=== PATIENT | female | born 2005 | race Caucasian/White ===

== ENCOUNTER 2023-01-04 15:23 | Inpatient (IN) | payer BC, SELFPAY ==
[2023-01-04 15:26] VITALS: BP 110/82; PULSE 82; O2SAT 98
--- NOTE | 2023-01-04 15:43 | MHC.CARE ---
Ky from 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 Ky reports suspected either psychosis or severe OCD, seems to have possible auditory hallucinations. Pt was prescribed a low dose of Seroquel but is anti medication?and unlikely she took any. Is young for her age and, terrified, lots of reassurance is helpful Patient is scheduled to go home to [place] on January 13 would be unable to travel in current condition. Pt will be evaluated possibly tonight/tomorrow.
[2023-01-04 15:48] VITALS: BP 113/77; PULSE 90; RESP 16; TEMP 36.4; O2SAT 100; BMI 26.4
[2023-01-04 15:52] VITALS: RESP 16; O2SAT 100
--- NOTE | 2023-01-04 15:54 | PC.NURSE ---
Pt is calm, cooperative. Reports instrusive thoughts with SI. States history of same but unable to control thoughts however this time pt is able to control if I don't think Pt denies plan at this time. Denies increased stressors, anxiety, AH or VH. Denies drug use or ETOH use. When speaking with pt, pt noted to talk under breath, refused to elaborate when asked what pt was saying. Good eye contact. Pt observer at bedside
--- NOTE | 2023-01-04 16:00 | ED_ITS ---
HPI - Psych General Chief Complaint: Psychiatric Symptoms Stated Complaint: SI Time Seen by Provider: 01/04/23 15:47 Source: patient Mode of arrival: ambulatory Limitations: no limitations History of Present Illness HPI Narrative: 17-year-old female presents emergency department with depression and suicidal thoughts. Patient is coming from a local college. Patient is not on any medications he has been overwhelmed as fevers chills cough nausea vomiting or diarrhea. MD complaint: suicidal ideation and feels depressed Related Data Allergies Allergy/AdvReac Type Severity Reaction Status Date / Time No Known Allergies Allergy Verified 01/04/23 16:03 Review of Systems Review of Systems: Review of systems: General: Patient denies any fever chills recent illness or falls Musculoskeletal: Denies back pain or body aches or other injuries HEENT: denies headache, runny nose, ear pain Respiratory: denies shortness of breath, cough Cardiovascular: no chest pain or palpitations : denies dysuria, frequency Abdomen: no nausea vomiting denies abdominal pain Extremities: no swelling, no pain Skin: no diaphoresis Yes all other systems are reviewed and are negative PMFSH Social History Social History Smoked in Last 30 Days: No Use of substances other than those prescribed or required for medical reasons: No Advance Directives: No Advance Directives Information Provided: No Patient : No Physical Exam Vital Signs: Vital Signs: Last Vital Signs Temp 98.7 F 01/04/23 20:48 Pulse 77 01/04/23 20:48 Resp 17 01/04/23 20:48 BP 128/85 01/04/23 20:48 Pulse Ox 98 01/04/23 20:48 O2 Del Method Room Air 01/04/23 20:48 BMI result Body Mass Index 26.4 General: Well-appearing well-nourished in no signs of distress HEENT: Normocephalic atraumatic Neck: No signs of JVD, no masses no tenderness or lymphadenopathy Cardiovascular: Regular rate and rhythm Respiratory: Clear to auscultation bilaterally Abdomen: Soft nontender no masses rectal exam performed guiac negative water quality assistant confirmed. Extremities: Normal pedal pulses no signs of edema Skin: Dry warm no rashes Back: No tenderness full ROM Medical Decision Making Medical Decision Making MDM Narrative: Patient with SI looks stable seems more vital still waiting for allergy to that in patient states she is not on any medications. Labs are all normal pending evalution. I will sign out to Dr. Casiano Differential Diagnosis Differential Diagnoses: The differential diagnosis associated with the presentation includes Admission/Observation Consideration of admission/observation: Escalation of care including admission/observation considered Consult Healthcare Provider Management of the patient was discussed with: Behavioral Health Provider Lab Data [facility] Lab Attestation statement: I reviewed the patient's lab results. 01/04/23 17:01 01/04/23 17:01 Labs: Lab Results 01/04/23 01/04/23 01/04/23 Range/Units 17: 17:01 20:47 WBC 10.0 (4.8-10.8) X10*3/uL RBC 4.48 (4.20-5.50) X10*6/uL Hgb 13.6 (12.0-16.0) g/dl Hct 42.0 (37.0-47.0) % MCV 93.8 (80.0-98.0) fL MCH 30.4 (27.0-33.0) pg MCHC 32.4 (31.0-35.0) g/dl RDW 13.5 (11.0-16.0) % Plt Count 309 (160-400) X10*3/uL MPV 10.0 (9.4-12.3) fL Immature Gran % (Auto) 0.3 (0.0-0.4) % Neut % (Auto) 67.3 (45-73) % Lymph % (Auto) 24.2 (20-40) % [place] % (Auto) 6.7 (2-11) % Eos % (Auto) 0.9 (0-4) % Baso % (Auto) 0.6 (0-2) % Lymph # (Auto) 2.4 (1.2-4.9) X10*3/uL [place] # (Auto) 0.7 (0.1-1.2) X10*3/uL Eos # (Auto) 0.1 (0.0-0.4) X10*3/uL Baso # (Auto) 0.1 (0.0-0.2) X10*3/uL Abs Immat Gran (auto) 0.03 (0.00-0.03) X10*3/uL Absolute Neuts (auto) 6.7 (2.0-8.3) x10*3/uL Absolute Nucleated RBC 0.000 (0.0-0.012) X10*3/uL Nucleated RBC % (auto) 0.0 (0.0-0.2) /100WBC Sodium 140 (135-145) mmol/L Potassium 3.7 (3.3-5.1) mmol/L Chloride 106 (96-108) mmol/L Carbon Dioxide 25 (22-29) mmol/L Anion Gap 13 (12-20) BUN 17 H (9-16) mg/dL Creatinine 0.75 (0.5-1.4) mg/dL Estim Creat Clear Calc 98.6 Estimated GFR > 60 Random Glucose 121 H (60-115) mg/dL Calcium 9.4 (8.4-10.2) mg/dL Total Bilirubin 0.3 (0.0-1.0) mg/dL AST 20 (5-31) U/L ALT 21 (0-31) U/L Alkaline Phosphatase 44 (39-117) U/L Total Protein 7.2 (6.5-8.0) g/dL Albumin 4.4 (3.5-5.0) g/dL Urine Color Urine Appearance Urine pH (5.0-9.0) Ur Specific [place] (1.005-1.025) Urine Protein (Neg-Trace) mg/dL Urine Glucose (UA) (Negative) mg/dL Urine Ketones (Negative) mg/dL Urine Blood (Negative) Urine Nitrite (Negative) Ur Leukocyte Esterase (Negative) Urine Test NEGATIVE (NEGATIVE) Salicylates < 5.0 L (15-30) mg/dL Urine Opiates Screen (Not Detect) Urine Fentanyl Screen (Not Detect) Acetaminophen < 17 (<30) mcg/mL Ur Barbiturates Screen (Not Detect) Ur Phencyclidine Scrn (Not Detect) Ur Amphetamines Screen (Not Detect) U Benzodiazepines Scrn (Not Detect) Urine Cocaine Screen (Not Detect) U Marijuana (THC) Screen (Not Detect) Ethyl Alcohol < 10 mg/dL COVID-19 ([facility]) (Negative) COVID-19 Clin Com 01/04/23 01/04/23 01/04/23 Range/Units 20:47 20:47 22:23 WBC (4.8-10.8) X10*3/uL RBC (4.20-5.50) X10*6/uL Hgb (12.0-16.0) g/dl Hct (37.0-47.0) % MCV (80.0-98.0) fL MCH (27.0-33.0) pg MCHC (31.0-35.0) g/dl RDW (11.0-16.0) % Plt Count (160-400) X10*3/uL MPV (9.4-12.3) fL Immature Gran % (Auto) (0.0-0.4) % Neut % (Auto) (45-73) % Lymph % (Auto) (20-40) % [place] % (Auto) (2-11) % Eos % (Auto) (0-4) % Baso % (Auto) (0-2) % Lymph # (Auto) (1.2-4.9) X10*3/uL [place] # (Auto) (0.1-1.2) X10*3/uL Eos # (Auto) (0.0-0.4) X10*3/uL Baso # (Auto) (0.0-0.2) X10*3/uL Abs Immat Gran (auto) (0.00-0.03) X10*3/uL Absolute Neuts (auto) (2.0-8.3) x10*3/uL Absolute Nucleated RBC (0.0-0.012) X10*3/uL Nucleated RBC % (auto) (0.0-0.2) /100WBC Sodium (135-145) mmol/L Potassium (3.3-5.1) mmol/L Chloride (96-108) mmol/L Carbon Dioxide (22-29) mmol/L Anion Gap (12-20) BUN (9-16) mg/dL Creatinine (0.5-1.4) mg/dL Estim Creat Clear Calc Estimated GFR Random Glucose (60-115) mg/dL Calcium (8.4-10.2) mg/dL Total Bilirubin (0.0-1.0) mg/dL AST (5-31) U/L ALT (0-31) U/L Alkaline Phosphatase (39-117) U/L Total Protein (6.5-8.0) g/dL Albumin (3.5-5.0) g/dL Urine Color Yellow Urine Appearance Clear Urine pH 6.5 (5.0-9.0) Ur Specific [place] 1.025 (1.005-1.025) Urine Protein Negative (Neg-Trace) mg/dL Urine Glucose (UA) Negative (Negative) mg/dL Urine Ketones Negative (Negative) mg/dL Urine Blood Negative (Negative) Urine Nitrite Negative (Negative) Ur Leukocyte Esterase Negative (Negative) Urine Test (NEGATIVE) Salicylates (15-30) mg/dL Urine Opiates Screen Not Detected (Not Detect) Urine Fentanyl Screen Not Detected (Not Detect) Acetaminophen (<30) mcg/mL Ur Barbiturates Screen Not Detected (Not Detect) Ur Phencyclidine Scrn Not Detected (Not Detect) Ur Amphetamines Screen Not Detected (Not Detect) U Benzodiazepines Scrn Not Detected (Not Detect) Urine Cocaine Screen Not Detected (Not Detect) U Marijuana (THC) Screen Not Detected (Not Detect) Ethyl Alcohol mg/dL COVID-19 ([facility]) Negative (Negative) COVID-19 Clin Com See Note Discharge Plan Discharge Clinical Impression: Chronic schizophrenia, Suicidal ideation Patient Disposition: Still a Patient Instructions: Suicide Prevention (ED), Help Prevent Suicide (ED) Additional Instructions: Please call to follow up. Interventions: Mower-Suicide Risk Severity Scale Last Done: 01/04/23 15:52
[2023-01-04 17:07] LABS: MANUAL DIFF FLAG NO
[2023-01-04 17:21] LABS: Basophils Absolute Auto 0.1 X10*3/uL (0.0-0.2); Basophils Percent Auto 0.6 % (0-2); Eosinophils Absolute Auto 0.1 X10*3/uL (0.0-0.4); Eosinophils Percent Auto 0.9 % (0-4); Hemoglobin 13.6 g/dl (12.0-16.0); Imm Gran Abs Auto 0.03 X10*3/uL (0.00-0.03); Imm Gran Pct Auto 0.3 % (0.0-0.4); Lymphocytes Absolute Auto 2.4 X10*3/uL (1.2-4.9); Lymphocytes Percent Auto 24.2 % (20-40); Mean Corpuscular HGB Conc 32.4 g/dl (31.0-35.0); Mean Corpuscular Hemoglobin 30.4 pg (27.0-33.0); Mean Corpuscular Volume 93.8 fL (80.0-98.0); Monocytes Absolute Auto 0.7 X10*3/uL (0.1-1.2); Monocytes Percent Auto 6.7 % (2-11); Neutrophils Absolute Auto 6.7 x10*3/uL (2.0-8.3); Neutrophils Percent Auto 67.3 % (45-73); Platelet Count 309 X10*3/uL (160-400); Red Blood Count 4.48 X10*6/uL (4.20-5.50); Red Cell Distribution Width 13.5 % (11.0-16.0)
[2023-01-04 17:25] LABS: Acetaminophen LAB < 17 mcg/mL (<30); Alanine Aminotransferase 21 U/L (0-31); Albumin Level 4.4 g/dL (3.5-5.0); Alkaline Phosphatase 44 U/L (39-117); Anion Gap 13 (12-20); Aspartate Amino Transferase 20 U/L (5-31); Bilirubin Total 0.3 mg/dL (0.0-1.0); Blood Urea Nitrogen 17 mg/dL (9-16); Calcium 9.4 mg/dL (8.4-10.2); Carbon Dioxide 25 mmol/L (22-29); Chloride 106 mmol/L (96-108); Creatinine Clr Calc Pharmacy 98.6; Estimated Glomerular Filt Rate > 60; Ethanol < 10 mg/dL; Glucose Random 121 mg/dL (60-115); Potassium 3.7 mmol/L (3.3-5.1); Salicylate < 5.0 mg/dL (15-30); Sodium 140 mmol/L (135-145); Total Protein 7.2 g/dL (6.5-8.0)
[2023-01-04 20:48] VITALS: BP 128/85; PULSE 77; RESP 17; TEMP 37.1; O2SAT 98
[2023-01-04 21:05] LABS: Amphetamine Screen Urine Not Detected (Not Detect); Barbiturates, Urine Not Detected (Not Detect); Benzodiazepines Screen Urine Not Detected (Not Detect); Cannabinoid Screen Urine Not Detected (Not Detect); Cocaine Screen Urine Not Detected (Not Detect); Fentanyl, urine Not Detected (Not Detect); Opiate Screen Urine Not Detected (Not Detect); Phencyclidine Screen Urine Not Detected (Not Detect)
[2023-01-04 21:08] LABS: UPreg QC Valid YES; Urine Pregnancy NEGATIVE (NEGATIVE)
[2023-01-04 22:27] LABS: Appearance Urine Clear; Color Urine Yellow; Glucose Urine UA Negative (Negative); Leukocyte Esterase Urine Negative (Negative); Nitrite Urine Negative (Negative); PH 6.5 (5.0-9.0); Specific Gravity - Urine 1.025 (1.005-1.025); Urine Blood Negative (Negative); Urine Ketones Negative (Negative); Urine Protein Negative (Neg-Trace)
[2023-01-04 22:43] LABS: COVID-19 Test Negative (Negative); IDNOW Serial# 08D9AD1C
--- NOTE | 2023-01-05 02:43 | PC.NURSE ---
Patient slept through the night, no distress observed/reported, med rec completed/pending provider's approval, per care team patient was forthcoming and help seeking, disposition is section 12 inpatient bed search, VSS, behavior non concerning, will continue to monitor.
[2023-01-05 06:16] VITALS: BP 94/30; PULSE 77; RESP 18; TEMP 36.3; O2SAT 97
[2023-01-05 06:29] VITALS: BP 118/66; PULSE 70; RESP 18; TEMP 36.9; O2SAT 99
[2023-01-05 08:40] VITALS: BP 141/93; PULSE 96; RESP 16; TEMP 36.7; O2SAT 98
--- NOTE | 2023-01-05 09:30 | MHC.EDTECH ---
T/w helped pt call family from [place] on her personal phone with 1:1 observation of staff. Pt needed to use [facility] [facility] in order to contact them and could not use ED provided phone to do so. After the conversation was over, t/w locked pt's personal phone back into locker 10.
--- NOTE | 2023-01-05 16:09 | ECG_ITS ---
Test Reason : CLEARANCE Blood Pressure : / mmHG Vent. Rate : 092 BPM Atrial Rate : 092 BPM P-R Int : 124 ms QRS Dur : 076 ms QT Int : 342 ms P-R-T Axes : 067 090 056 degrees QTc Int : 422 ms Normal sinus rhythm with sinus arrhythmia Rightward axis Borderline ECG No previous ECGs available Referred By: Elizabeth Keating Electronically Signed By:Alexis Cabello
[2023-01-05 17:35] VITALS: BP 132/68; PULSE 86; RESP 16; TEMP 36.8; O2SAT 97
[2023-01-05 17:36] VITALS: BMI 26.2
--- NOTE | 2023-01-05 18:24 | PC.ADMIT ---
Samir Sahu was admitted to the unit from the ER at 1645 via WC escorted by staff. First IPLOC for safety, medication evaluation, diagnostic clarification, diagnosis unspecified schizophrenia. CV signed and a 3 day signed which is up for resolution on 01/10/23. Labs, EKG, Covid-19 test benign, no medical history. Lee Ann is ad-tanika, steady gait, independent with ADL', engaged in admission assessment, denies SI/HI with positive report of AH, observed self dialogue, she identifies the voice as her heart Buddha she denied CAH. She reports feeling safe on the unit although she expressed some apprehension on being on the unit because of peers, Is this place safe? People are different here. I think my roommate is refugio strange. Plan of Care initiated (POC), 15 minute unit safety observation.
[2023-01-06 08:32] VITALS: BP 123/65; PULSE 136; RESP 18; TEMP 36; O2SAT 95
[2023-01-06 08:43] LABS: Estimated Average Glucose 105 mg/dL; Hemoglobin A1c % 5.3 %
[2023-01-06] MEDS: LORazepam 1 MG TABLET PO (10:37)
[2023-01-06] MEDS: HaloperidoL 5 MG TABLET PO (10:37)
[2023-01-06 10:59] LABS: Cholesterol 248 mg/dL; HDL Cholesterol 70 mg/dL; LDL Cholesterol Calculated 156 mg/dl; Magnesium 2.2 mg/dL (1.6-2.6); Triglycerides 110 mg/dL
[2023-01-06 11:35] LABS: Folate 12.8 ng/mL (> or = 4.0); Free T4 (Free Thyroxine) 1.02 ng/dL (0.71-1.85); Thyroid Stimulating Hormone 2.07 uIU/mL (0.32-4.0); Vitamin B12 408 pg/mL (200-900)
--- NOTE | 2023-01-06 15:14 | P.HPPS_ITS ---
HPI Date of Service: 01/06/23 Chief Complaint: Schizophrenia Sources of Information: patient interviewed, chart reviewed and crisis/core team assessment reviewed HPI Subjective Notes: Conditional Voluntary Healthcare Proxy: No Guardianship: No Medical Problems Affecting Mental Status: No Narrative: 17 yo female, student of [employer], to ER via EMS with increasing anxiety, depression, SI, intrusive thoughts, perceptual alterations, insomnia. Hx of schizophrenia, opposed to psychiatric medications. Pt to return home to [place] on 01/17/23 she reports and hospitalization goal is for mood stabilization so she will travel safely to family. Pt reports her heart has gone from bright to dark, describes lots of hurt, feeling isolated, emotionally crushed with racing, ci rcular thoughts and mood. States this began over spring when most peers went home and she remained, spending time with some friends but becoming more depressed. Reports sx presence since age 12 with voices, intrusive thoughts, traumatic visions of assault, decapitation. Pt reports she attempts not to empower the symptom as she does not wish for them to return to her. Past Psychiatric History: IP: Denies OP: [facility] [employer] Trials: Denies-uses Ugand[place] medicine, traditional methods to re-organize her body and herbal remedies Medical Evaluation Reviewed: Yes [facility] Medical History (Updated 01/06/23 @ 20:45 by Elizabeth Keating APRN) Schizoaffective disorder, bipolar type Family History: grandmother with mental illness Social History: only child, supportive parents, reports a good upbringing, studied abroad age 10 and age 12 in [place]. Reports parents are not aware she is here. Mom is Buddist-tells pt to always keep your heart and be bright. States both support her financially and emotionally. Pt last at home 2021. Enjoys school, drawing, philosophy, music Substance History: Denies Trauma History: Denies Diagnostics Vital Signs (24Hr): Vital Signs - 24 hr 01/05/23 17:35 01/06/23 08:32 Temperature 98.2 F 96.8 F Pulse Rate 86 136 H Respiratory Rate 16 18 Blood Pressure 132/68 123/65 Pulse Oximetry 97 95 Oxygen Delivery Method Room Air Room Air BMI result Body Mass Index 26.2 Labs 01/04/23 17:01 01/04/23 17:01 Labs: Laboratory Results - last 48 hr 01/04/23 01/04/23 01/04/23 17:01 17:01 20:47 WBC 10.0 RBC 4.48 Hgb 13.6 Hct 42.0 MCV 93.8 MCH 30.4 MCHC 32.4 RDW 13.5 Plt Count 309 MPV 10.0 Immature Gran % (Auto) 0.3 Neut % (Auto) 67.3 Lymph % (Auto) 24.2 [place] % (Auto) 6.7 Eos % (Auto) 0.9 Baso % (Auto) 0.6 Lymph # (Auto) 2.4 [place] # (Auto) 0.7 Eos # (Auto) 0.1 Baso # (Auto) 0.1 Abs Immat Gran (auto) 0.03 Absolute Neuts (auto) 6.7 Absolute Nucleated RBC 0.000 Nucleated RBC % (auto) 0.0 Sodium 140 Potassium 3.7 Chloride 106 Carbon Dioxide 25 Anion Gap 13 BUN 17 H Creatinine 0.75 Estim Creat Clear Calc 98.6 Estimated GFR > 60 Random Glucose 121 H Estimat Average Glucose Hemoglobin A1c % Calcium 9.4 Magnesium Total Bilirubin 0.3 AST 20 ALT 21 Alkaline Phosphatase 44 Total Protein 7.2 Albumin 4.4 Triglycerides Cholesterol LDL Cholesterol, Calc HDL Cholesterol Vitamin B12 Folate TSH Free T4 Urine Color Urine Appearance Urine pH Ur Specific [place] Urine Protein Urine Glucose (UA) Urine Ketones Urine Blood Urine Nitrite Ur Leukocyte Esterase Urine Test NEGATIVE Salicylates < 5.0 L Urine Opiates Screen Urine Fentanyl Screen Acetaminophen < 17 Ur Barbiturates Screen Ur Phencyclidine Scrn Ur Amphetamines Screen U Benzodiazepines Scrn Urine Cocaine Screen U Marijuana (THC) Screen Ethyl Alcohol < 10 COVID-19 ([facility]) COVID-19 Clin Com 01/04/23 01/04/23 01/04/23 20:47 20:47 22:23 WBC RBC Hgb Hct MCV MCH MCHC RDW Plt Count MPV Immature Gran % (Auto) Neut % (Auto) Lymph % (Auto) [place] % (Auto) Eos % (Auto) Baso % (Auto) Lymph # (Auto) [place] # (Auto) Eos # (Auto) Baso # (Auto) Abs Immat Gran (auto) Absolute Neuts (auto) Absolute Nucleated RBC Nucleated RBC % (auto) Sodium Potassium Chloride Carbon Dioxide Anion Gap BUN Creatinine Estim Creat Clear Calc Estimated GFR Random Glucose Estimat Average Glucose Hemoglobin A1c % Calcium Magnesium Total Bilirubin AST ALT Alkaline Phosphatase Total Protein Albumin Triglycerides Cholesterol LDL Cholesterol, Calc HDL Cholesterol Vitamin B12 Folate TSH Free T4 Urine Color Yellow Urine Appearance Clear Urine pH 6.5 Ur Specific [place] 1.025 Urine Protein Negative Urine Glucose (UA) Negative Urine Ketones Negative Urine Blood Negative Urine Nitrite Negative Ur Leukocyte Esterase Negative Urine Test Salicylates Urine Opiates Screen Not Detected Urine Fentanyl Screen Not Detected Acetaminophen Ur Barbiturates Screen Not Detected Ur Phencyclidine Scrn Not Detected Ur Amphetamines Screen Not Detected U Benzodiazepines Scrn Not Detected Urine Cocaine Screen Not Detected U Marijuana (THC) Screen Not Detected Ethyl Alcohol COVID-19 ([facility]) Negative COVID-19 [facility] Com See Note 01/06/23 01/06/23 08:25 08:25 WBC RBC Hgb Hct MCV MCH MCHC RDW Plt Count MPV Immature Gran % (Auto) Neut % (Auto) Lymph % (Auto) [place] % (Auto) Eos % (Auto) Baso % (Auto) Lymph # (Auto) [place] # (Auto) Eos # (Auto) Baso # (Auto) Abs Immat Gran (auto) Absolute Neuts (auto) Absolute Nucleated RBC Nucleated RBC % (auto) Sodium Potassium Chloride Carbon Dioxide Anion Gap BUN Creatinine Estim Creat Clear Calc Estimated GFR Random Glucose Estimat Average Glucose 105 Hemoglobin A1c % 5.3 Calcium Magnesium 2.2 Total Bilirubin AST ALT Alkaline Phosphatase Total Protein Albumin Triglycerides 110 Cholesterol 248 LDL Cholesterol, Calc 156 HDL Cholesterol 70 Vitamin B12 408 Folate 12.8 TSH 2.07 Free T4 1.02 Urine Color Urine Appearance Urine pH Ur Specific [place] Urine Protein Urine Glucose (UA) Urine Ketones Urine Blood Urine Nitrite Ur Leukocyte Esterase Urine Test Salicylates Urine Opiates Screen Urine Fentanyl Screen Acetaminophen Ur Barbiturates Screen Ur Phencyclidine Scrn Ur Amphetamines Screen U Benzodiazepines Scrn Urine Cocaine Screen U Marijuana (THC) Screen Ethyl Alcohol COVID-19 ([facility]) COVID-19 [facility] Com Meds/Allergies Meds Home Medications Medication Instructions Recorded Confirmed Type quetiapine 50 mg tablet 50 mg PO BEDTIME 01/05/23 01/05/23 History Allergies Allergies Allergy/AdvReac Type Severity Reaction Status Date / Time No Known Allergies Allergy Verified 01/04/23 16:03 Mental Status Exam Mental Status Exam Patient Appearance: Appropriate Patient Orientation: Person, Place, Time and Situation Level of Consciousness: Alert Patient Behavior: Appropriate, Talkative, Cooperative, Anxious, Fearful, Distractible and Good Eye Contact Mood Description: Depressed, Anxious and Apprehensive Affect Description: Anxious and Apprehensive Patient Cognition Impaired: No Ability to Follow Directions: Good Speech Pattern: Perseverating, Spontaneous Speech, Soft-Spoken, Animated, Pressured and Excited Memory Description: Intact Hallucinations: Auditory Delusions: Present Perceptual Disturbances: Depersonalization and Derealization Thought Process: Racing, Distracted and Rumination Thought Content: positive for Flight of Ideas, positive for Circumstantial, positive for Perseveration, positive for Thought Blocking, positive for Tangential and positive for Suicidal Ideation Depressive Symptoms: Increased Anxiety, Difficulty Sleeping, Loss of Int. in Activity, Hopelessness, Thoughts of /Suicide, Loss of Energy and Difficulty Concentrating Abnormal Motor Activity Signs and Symptoms: Restlessness Judgement: Poor Assessment & Plan Assessment & Plan (1) Suicidal ideation: Status: Acute Code(s): R45.851 - Suicidal ideations (2) Schizoaffective disorder, bipolar type: Status: Acute Code(s): F25.0 - Schizoaffective disorder, bipolar type Plan 17 yo female, student of [employer] presents with symptoms of depression, psychosis she reports since her spring break. Reports sx first presented at age 12. Plan: Haldol 5 mg x 1 Ativan 1 mg x 1 Olanzapine 5 mg bid Patient educated on: therapeutic strategies Informed Consent: further education needed Reason for continued inpatient stay Substantial Risk for: harm to self and rapid decompensation Statement Statement: I have reviewed the history and physical and performed a pertinent examination on my patient. No changes have occurred unless specified. If the History and Physical was not performed prior to admission, the Hospitalist's service will be consulted for completing the admission physical. Time Spent With Patient Time: Total time managing care of this patient today ____ minutes.
[2023-01-06 18:00] VITALS: BP 128/68; PULSE 78; RESP 16; TEMP 36.4; O2SAT 99
--- NOTE | 2023-01-06 21:51 | PC.NURSE ---
Pt refused to take bed time zyprexa.
[2023-01-07] MEDS: OLANZapine 5 MG TABLET PO ×2 (08:10→20:30)
[2023-01-07 08:51] VITALS: BP 123/72; PULSE 130; RESP 18; TEMP 36.9; O2SAT 98
[2023-01-07 18:14] VITALS: BP 131/60; PULSE 100; TEMP 36.1
--- NOTE | 2023-01-07 21:25 | HO.PSYCHPN ---
Subjective Subjective Date of Service: 01/07/23 Reason For Visit: Schizophrenia Interim History: Patient seen and discussed. She reports she is feeling well. RN report she presents with an odd affect and may be responding to IS. Patient denies hallucinations and says her mood is good. She denies SI. She presents with a somewhat incongruent affect. Denies side effects with the medications. Says she slept well. Review of Systems Review of Systems Review of systems: General: Patient denies any fever chills recent illness or falls Musculoskeletal: Denies back pain or body aches or other injuries HEENT: denies headache, runny nose, ear pain Respiratory: denies shortness of breath, cough Cardiovascular: no chest pain or palpitations : denies dysuria, frequency Abdomen: no nausea vomiting denies abdominal pain Extremities: no swelling, no pain Skin: no diaphoresis Yes all other systems are reviewed and are negative Psychiatric: Reports abnormal sleep pattern, Reports anxiety, Reports depression, Reports difficulty concentrating, Reports auditory hallucinations, Reports hopelessness, Reports anhedonia, Reports mood swings and Reports suicidal ideation Mental Status Exam Mental Status Exam Patient Appearance: Appropriate Patient Orientation: Person, Place, Time and Situation Level of Consciousness: Alert Patient Behavior: Appropriate, Talkative, Cooperative, Anxious, Fearful, Distractible and Good Eye Contact Mood Description: Depressed, Anxious and Apprehensive Affect Description: Anxious and Apprehensive Patient Cognition Impaired: No Ability to Follow Directions: Good Speech Pattern: Perseverating, Spontaneous Speech, Soft-Spoken, Animated, Pressured and Excited Memory Description: Intact Diagnostics Vital Signs (24Hr): Vital Signs - 24 hr 01/07/23 08:51 01/07/23 18:14 Temperature 98.4 F 97 F Pulse Rate 130 H 100 Respiratory Rate 18 Blood Pressure 123/72 131/60 Pulse Oximetry 98 Oxygen Delivery Method Room Air BMI result Body Mass Index 26.2 Labs 01/04/23 17:01 01/04/23 17:01 Labs: Laboratory Results - last 48 hr 01/06/23 01/06/23 08:25 08:25 Estimat Average Glucose 105 Hemoglobin A1c % 5.3 Magnesium 2.2 Triglycerides 110 Cholesterol 248 LDL Cholesterol, Calc 156 HDL Cholesterol 70 Vitamin B12 408 Folate 12.8 TSH 2.07 Free T4 1.02 Medications Medications Current Medications Acetaminophen (Acetaminophen 325 Mg Tablet) 650 mg PO Q6H PRN PRN Reason: Headache/Pain Mild Scale (1-3) Al Hydroxide/Mg Hydroxide (Magnesium Hydrox/Alum Hydrox 30 Ml Oral.Susp) 30 ml PO Q6H PRN PRN Reason: Heartburn/Nausea Hydroxyzine HCl (Hydroxyzine Hcl 25 Mg Tablet) 25 mg PO Q6H PRN PRN Reason: Anxiety Magnesium Hydroxide (Milk Of Magnesia 30 Ml Oral.Susp) 30 ml PO DAILY PRN PRN Reason: Constipation Olanzapine (Olanzapine 5 Mg Tablet) 5 mg PO BID MANFRED Last Admin: 01/07/23 20:30 Dose: 5 mg Trazodone HCl (Trazodone Hcl 50 Mg Tablet) 50 mg PO BEDTIME MRX1 PRN PRN Reason: Insomnia Allergies Allergies Allergy/AdvReac Type Severity Reaction Status Date / Time No Known Allergies Allergy Verified 01/04/23 16:03 Assessment & Plan Assessment & Plan (1) Suicidal ideation: Status: Acute Code(s): R45.851 - Suicidal ideations (2) Schizoaffective disorder, bipolar type: Status: Acute Code(s): F25.0 - Schizoaffective disorder, bipolar type Plan 17 yo female, student of [employer] presents with symptoms of depression, psychosis she reports since her spring break. Reports sx first presented at age 12. Plan: Haldol 5 mg x 1 Ativan 1 mg x 1 Olanzapine 5 mg bid 01/07: Continue current tx plan. Reason for continued inpatient stay Substantial Risk for: inability to function and rapid decompensation Time Spent With Patient Time: Total time managing care of this patient today ____ minutes.
[2023-01-08] MEDS: OLANZapine 5 MG TABLET PO ×2 (08:19→20:50)
[2023-01-08 08:41] VITALS: BP 125/79; PULSE 83; RESP 16; TEMP 37.1; O2SAT 98
--- NOTE | 2023-01-08 09:17 | HO.PSYCHPN ---
Subjective Subjective Date of Service: 01/08/23 Reason For Visit: Schizophrenia Interim History: Patient seen and discussed. She reports she is feeling well but has some bad thoughts that make my happy thoughts go away. She seems less anxious over all. Per report, may be responding to IS. Patient denies hallucinations and says her mood is good. She denies SI. Denies side effects with the medications. Says she slept well. Review of Systems Review of Systems Review of systems: General: Patient denies any fever chills recent illness or falls Musculoskeletal: Denies back pain or body aches or other injuries HEENT: denies headache, runny nose, ear pain Respiratory: denies shortness of breath, cough Cardiovascular: no chest pain or palpitations : denies dysuria, frequency Abdomen: no nausea vomiting denies abdominal pain Extremities: no swelling, no pain Skin: no diaphoresis Yes all other systems are reviewed and are negative Psychiatric: Reports abnormal sleep pattern, Reports anxiety, Reports depression, Reports difficulty concentrating, Reports auditory hallucinations, Reports hopelessness, Reports anhedonia, Reports mood swings and Reports suicidal ideation Mental Status Exam Mental Status Exam Patient Appearance: Appropriate Patient Orientation: Person, Place, Time and Situation Level of Consciousness: Alert Patient Behavior: Appropriate, Talkative, Cooperative, Anxious, Fearful, Distractible and Good Eye Contact Mood Description: Depressed, Anxious and Apprehensive Affect Description: Anxious and Apprehensive Patient Cognition Impaired: No Ability to Follow Directions: Good Speech Pattern: Perseverating, Spontaneous Speech, Soft-Spoken, Animated, Pressured and Excited Memory Description: Intact Diagnostics Vital Signs (24Hr): Vital Signs - 24 hr 01/07/23 18:14 01/08/23 08:41 Temperature 97 F 98.7 F Pulse Rate 100 83 Respiratory Rate 16 Blood Pressure 131/60 125/79 Pulse Oximetry 98 Oxygen Delivery Method Room Air BMI result Body Mass Index 26.2 Labs 01/04/23 17:01 01/04/23 17:01 Labs: Laboratory Results - last 48 hr 01/06/23 08:25 Magnesium 2.2 Triglycerides 110 Cholesterol 248 LDL Cholesterol, Calc 156 HDL Cholesterol 70 Vitamin B12 408 Folate 12.8 TSH 2.07 Free T4 1.02 Medications Medications Current Medications Acetaminophen (Acetaminophen 325 Mg Tablet) 650 mg PO Q6H PRN PRN Reason: Headache/Pain Mild Scale (1-3) Al Hydroxide/Mg Hydroxide (Magnesium Hydrox/Alum Hydrox 30 Ml Oral.Susp) 30 ml PO Q6H PRN PRN Reason: Heartburn/Nausea Hydroxyzine HCl (Hydroxyzine Hcl 25 Mg Tablet) 25 mg PO Q6H PRN PRN Reason: Anxiety Magnesium Hydroxide (Milk Of Magnesia 30 Ml Oral.Susp) 30 ml PO DAILY PRN PRN Reason: Constipation Olanzapine (Olanzapine 5 Mg Tablet) 5 mg PO BID MANFRED Last Admin: 01/08/23 08:19 Dose: 5 mg Trazodone HCl (Trazodone Hcl 50 Mg Tablet) 50 mg PO BEDTIME MRX1 PRN PRN Reason: Insomnia Allergies Allergies Allergy/AdvReac Type Severity Reaction Status Date / Time No Known Allergies Allergy Verified 01/04/23 16:03 Assessment & Plan Assessment & Plan (1) Suicidal ideation: Status: Acute Code(s): R45.851 - Suicidal ideations (2) Schizoaffective disorder, bipolar type: Status: Acute Code(s): F25.0 - Schizoaffective disorder, bipolar type Plan 17 yo female, student of [employer] presents with symptoms of depression, psychosis she reports since her spring break. Reports sx first presented at age 12. Plan: Haldol 5 mg x 1 Ativan 1 mg x 1 Olanzapine 5 mg bid 01/07: Continue current tx plan. 01/08: Continue current plan Reason for continued inpatient stay Substantial Risk for: inability to function and rapid decompensation Time Spent With Patient Time: Total time managing care of this patient today ____ minutes.
[2023-01-08 16:21] VITALS: BP 138/84; PULSE 107; TEMP 36.4
[2023-01-09 07:45] VITALS: BP 128/64; PULSE 100; RESP 18; TEMP 37.7; O2SAT 95
[2023-01-09] MEDS: OLANZapine 5 MG TABLET PO ×2 (07:55→22:40)
[2023-01-09 10:44] VITALS: TEMP 36.8
--- NOTE | 2023-01-09 17:04 | P.PNPSI_ITS ---
Subjective Subjective Date of Service: 01/09/23 Reason For Visit: Schizophrenia Subjective Notes: 3 Day Healthcare Proxy: No Guardianship: No Medical Problems Affecting Mental Status: No Interim History: Three day notice to 01/10. Continues with psychotic, disorganized symptom presentation. Eating/Sleeping well per team, no behavioral dyscontrol Attending milieu groups, interactive with the team. Pt scheduled to return to [place] 01/17. Will file Section 7 is she will not retract. Will need an escort on her flight home for support and guidance given current presentation. Medication Compliance: Yes Side effects from medications: No Attending Groups: Yes Review of Systems Acute medical concerns: No Medical Review of Systems: unchanged Mental Status Exam Mental Status Exam Patient Appearance: Appropriate Patient Orientation: Person and Place Level of Consciousness: Alert Patient Behavior: Appropriate, Talkative, Cooperative, Anxious, Distractible, Good Eye Contact and Pacing Mood Description: Anxious and Apprehensive Affect Description: Anxious and Apprehensive Patient Cognition Impaired: No Ability to Follow Directions: Good Speech Pattern: Spontaneous Speech Memory Description: Episodic Impaired Delusions: Present Perceptual Disturbances: Derealization Thought Process: Distracted Thought Content: positive for Obsessional Thoughts (intrusive), positive for Perseveration and positive for Suicidal Ideation Depressive Symptoms: Increased Anxiety and Thoughts of /Suicide Abnormal Motor Activity Signs and Symptoms: Restlessness Judgement: Fair Diagnostics Vital Signs (24Hr): Vital Signs - 24 hr 01/09/23 07:45 01/09/23 10:44 Temperature 99.8 F 98.2 F Pulse Rate 100 Respiratory Rate 18 Blood Pressure 128/64 Pulse Oximetry 95 Oxygen Delivery Method Room Air BMI result Body Mass Index 26.2 Labs 01/04/23 17:01 01/04/23 17:01 Medications Medications Current Medications Acetaminophen (Acetaminophen 325 Mg Tablet) 650 mg PO Q6H PRN PRN Reason: Headache/Pain Mild Scale (1-3) Al Hydroxide/Mg Hydroxide (Magnesium Hydrox/Alum Hydrox 30 Ml Oral.Susp) 30 ml PO Q6H PRN PRN Reason: Heartburn/Nausea Hydroxyzine HCl (Hydroxyzine Hcl 25 Mg Tablet) 25 mg PO Q6H PRN PRN Reason: Anxiety Magnesium Hydroxide (Milk Of Magnesia 30 Ml Oral.Susp) 30 ml PO DAILY PRN PRN Reason: Constipation Olanzapine (Olanzapine 5 Mg Tablet) 5 mg PO BID MANFRED Last Admin: 01/09/23 07:55 Dose: 5 mg Trazodone HCl (Trazodone Hcl 50 Mg Tablet) 50 mg PO BEDTIME MRX1 PRN PRN Reason: Insomnia Allergies Allergies Allergy/AdvReac Type Severity Reaction Status Date / Time No Known Allergies Allergy Verified 01/04/23 16:03 Assessment & Plan Assessment & Plan (1) Suicidal ideation: Status: Acute Code(s): R45.851 - Suicidal ideations (2) Schizoaffective disorder, bipolar type: Status: Acute Code(s): F25.0 - Schizoaffective disorder, bipolar type Plan 17 yo female, student of [employer] presents with symptoms of depression, psychosis she reports since her spring break. Reports sx first presented at age 12. Plan: Haldol 5 mg x 1 Ativan 1 mg x 1 Olanzapine 5 mg bid 01/07: Continue current tx plan. 01/08: Continue current plan 01/09/23: Continue current plan. Facilitate safe return to family in [place] Patient educated on: therapeutic strategies Informed Consent: further education needed Reason for continued inpatient stay Substantial Risk for: rapid decompensation Time Spent With Patient Time: Total time managing care of this patient today ____ minutes.
[2023-01-09 17:31] VITALS: BP 126/78; PULSE 101; TEMP 36.2; O2SAT 97
[2023-01-10 06:00] VITALS: BP 110/65; PULSE 85; RESP 16
[2023-01-10] MEDS: OLANZapine 5 MG TABLET PO (08:17)
--- NOTE | 2023-01-10 16:35 | HO.PSYCHPN ---
Subjective Subjective Date of Service: 01/10/23 Reason For Visit: Schizophrenia Subjective Notes: 3 Day (retraction) Healthcare Proxy: No Guardianship: No Medical Problems Affecting Mental Status: No Interim History: Discussed with Lee Ann that her three day notice has and we have option of discharge or application to court for commitment via section 7. Pt would like to prepare to return to [place], as a result she decided to retract three day notice, continue her treatment and return to school 01/16/23 to gather belongings and return home on 01/17/23. Team is currently working with [employer] to secure a flight nurse to assist pt. Team is working on contacting parents, however, [employer] has not been able to reach them to inform them of pt's hospitalization. Pt reported concerns about her assignments, wanting to reach out to her professors. She continues to appear to respond to internal stimuli, acknowledges this and reports she is trying to ignore this. Tolerating medications, however, when she returns home she plans to explore natural methods of treatment which do not involve psychopharmacology. Agrees to increase Olanzapine to 7.5 mg bid. Reports benefit found in using medicine, however as it is chemical she wants only brief, low dose interventions. Declines trial of a second agent for improved mood modulation. Medication Compliance: Yes Side effects from medications: No Attending Groups: Yes Review of Systems Acute medical concerns: No Medical Review of Systems: unchanged Mental Status Exam Mental Status Exam Patient Appearance: Appropriate Patient Orientation: Person and Place Level of Consciousness: Alert Patient Behavior: Appropriate, Talkative, Cooperative, Anxious, Distractible, Good Eye Contact and Pacing Mood Description: Anxious and Apprehensive Affect Description: Anxious and Apprehensive Patient Cognition Impaired: No Ability to Follow Directions: Good Speech Pattern: Spontaneous Speech Memory Description: Episodic Impaired Delusions: Present Perceptual Disturbances: Derealization Thought Process: Distracted Thought Content: positive for Obsessional Thoughts (intrusive), positive for Perseveration and positive for Suicidal Ideation Depressive Symptoms: Increased Anxiety and Thoughts of /Suicide Abnormal Motor Activity Signs and Symptoms: Restlessness Judgement: Fair Diagnostics Vital Signs (24Hr): Vital Signs - 24 hr 01/09/23 17:31 01/10/23 06:00 Temperature 97.1 F Pulse Rate 101 H 85 Respiratory Rate 16 Blood Pressure 126/78 110/65 Pulse Oximetry 97 Oxygen Delivery Method Room Air BMI result Body Mass Index 26.2 Labs 01/04/23 17:01 01/04/23 17:01 Medications Medications Current Medications Acetaminophen (Acetaminophen 325 Mg Tablet) 650 mg PO Q6H PRN PRN Reason: Headache/Pain Mild Scale (1-3) Al Hydroxide/Mg Hydroxide (Magnesium Hydrox/Alum Hydrox 30 Ml Oral.Susp) 30 ml PO Q6H PRN PRN Reason: Heartburn/Nausea Hydroxyzine HCl (Hydroxyzine Hcl 25 Mg Tablet) 25 mg PO Q6H PRN PRN Reason: Anxiety Magnesium Hydroxide (Milk Of Magnesia 30 Ml Oral.Susp) 30 ml PO DAILY PRN PRN Reason: Constipation Olanzapine (Olanzapine 5 Mg Tablet) 5 mg PO BID MANFRED Last Admin: 01/10/23 08:17 Dose: 5 mg Trazodone HCl (Trazodone Hcl 50 Mg Tablet) 50 mg PO BEDTIME MRX1 PRN PRN Reason: Insomnia Allergies Allergies Allergy/AdvReac Type Severity Reaction Status Date / Time No Known Allergies Allergy Verified 01/04/23 16:03 Assessment & Plan Assessment & Plan (1) Suicidal ideation: Status: Acute Code(s): R45.851 - Suicidal ideations (2) Schizoaffective disorder, bipolar type: Status: Acute Code(s): F25.0 - Schizoaffective disorder, bipolar type Plan 17 yo female, student of [employer] presents with symptoms of depression, psychosis she reports since her spring break. Reports sx first presented at age 12. Plan: Haldol 5 mg x 1 Ativan 1 mg x 1 Olanzapine 5 mg bid 01/07: Continue current tx plan. 01/08: Continue current plan 01/09/23: Continue current plan. Facilitate safe return to family in [place] 01/10/23: Increase Olanzapine to 7.5 mg bid Patient educated on: medication risk/benefits and therapeutic strategies Informed Consent: further education needed Reason for continued inpatient stay Substantial Risk for: harm to self and rapid decompensation Time Spent With Patient Time: Total time managing care of this patient today ____ minutes.
[2023-01-10 17:11] VITALS: BP 127/69; PULSE 102; TEMP 35.7; O2SAT 97
[2023-01-10] MEDS: OLANZapine 7.5 MG TABLET PO (20:15)
[2023-01-11 07:50] VITALS: BP 118/76; PULSE 92; RESP 18; TEMP 36.7; O2SAT 98
[2023-01-11] MEDS: OLANZapine 7.5 MG TABLET PO ×2 (07:50→20:19)
--- NOTE | 2023-01-11 16:28 | P.PNPSI_ITS ---
Subjective Subjective Date of Service: 01/11/23 Reason For Visit: Schizophrenia Subjective Notes: Conditional Voluntary Healthcare Proxy: No Guardianship: No Medical Problems Affecting Mental Status: No Interim History: Review of conditional voluntary status, three day notice, section VII/VIII with Lee Ann. Asking to discharge today to prepare for her flight home to [place], so she may pack her belongings for storage and to travel. Discussed concerns about her symptoms and treatment. Discussed plan of discharge for 01/16 to allow her to prepare and to have a traveling representative with her during flight in case of issues with medicines or should symptoms arise. She will contact peers to instruct them about assisting in packing for her. She continues with symptoms of responding to internal stimuli, self-dialoguing, team reports some abstract movements which are non EPS/Akathesia like and some anxiety about upcoming travel. Medication Compliance: Yes Side effects from medications: No Attending Groups: Intermittent Review of Systems Acute medical concerns: No Medical Review of Systems: unchanged Mental Status Exam Mental Status Exam Patient Appearance: Appropriate Patient Orientation: Person and Place Level of Consciousness: Alert Patient Behavior: Appropriate, Talkative, Cooperative, Anxious, Distractible, Good Eye Contact and Pacing Mood Description: Anxious and Apprehensive Affect Description: Anxious and Apprehensive Patient Cognition Impaired: No Ability to Follow Directions: Good Speech Pattern: Spontaneous Speech Memory Description: Episodic Impaired Delusions: Present Perceptual Disturbances: Derealization Thought Process: Distracted Thought Content: positive for Obsessional Thoughts (intrusive), positive for Perseveration and positive for Suicidal Ideation Depressive Symptoms: Increased Anxiety and Thoughts of /Suicide Abnormal Motor Activity Signs and Symptoms: Restlessness Judgement: Fair Diagnostics Vital Signs (24Hr): Vital Signs - 24 hr 01/10/23 17:11 01/11/23 07:50 Temperature 96.3 F L 98.1 F Pulse Rate 102 H 92 Respiratory Rate 18 Blood Pressure 127/69 118/76 Pulse Oximetry 97 98 Oxygen Delivery Method Room Air Room Air BMI result Body Mass Index 26.2 Labs 01/04/23 17:01 01/04/23 17:01 Medications Medications Current Medications Acetaminophen (Acetaminophen 325 Mg Tablet) 650 mg PO Q6H PRN PRN Reason: Headache/Pain Mild Scale (1-3) Al Hydroxide/Mg Hydroxide (Magnesium Hydrox/Alum Hydrox 30 Ml Oral.Susp) 30 ml PO Q6H PRN PRN Reason: Heartburn/Nausea Hydroxyzine HCl (Hydroxyzine Hcl 25 Mg Tablet) 25 mg PO Q6H PRN PRN Reason: Anxiety Lorazepam (Lorazepam 0.5 Mg Tablet) 0.5 mg PO BEDTIME PRN PRN Reason: Insomnia Magnesium Hydroxide (Milk Of Magnesia 30 Ml Oral.Susp) 30 ml PO DAILY PRN PRN Reason: Constipation Olanzapine (Olanzapine 7.5 Mg Tablet) 7.5 mg PO BID MANFRED Last Admin: 01/11/23 07:50 Dose: 7.5 mg Trazodone HCl (Trazodone Hcl 50 Mg Tablet) 50 mg PO BEDTIME MRX1 PRN PRN Reason: Insomnia Allergies Allergies Allergy/AdvReac Type Severity Reaction Status Date / Time No Known Allergies Allergy Verified 01/04/23 16:03 Assessment & Plan Assessment & Plan (1) Suicidal ideation: Status: Acute Code(s): R45.851 - Suicidal ideations (2) Schizoaffective disorder, bipolar type: Status: Acute Code(s): F25.0 - Schizoaffective disorder, bipolar type Plan 17 yo female, student of [employer] presents with symptoms of depression, psychosis she reports since her spring break. Reports sx first presented at age 12. Plan: Haldol 5 mg x 1 Ativan 1 mg x 1 Olanzapine 5 mg bid 01/07: Continue current tx plan. 01/08: Continue current plan 01/09/23: Continue current plan. Facilitate safe return to family in [place] 01/10/23: Increase Olanzapine to 7.5 mg bid 01/11/23: Continue current plan Team attempting to contact parents Tentative discharge for 01/16 for return flight with a traveling representative for 01/17/23. Patient educated on: therapeutic strategies and other (legal status) Informed Consent: further education needed Reason for continued inpatient stay Substantial Risk for: rapid decompensation Time Spent With Patient Time: Total time managing care of this patient today ____ minutes.
[2023-01-11 17:07] VITALS: BP 133/83; PULSE 112; TEMP 36.6
[2023-01-12 07:00] VITALS: BMI 31.8
[2023-01-12 08:05] VITALS: BP 133/68; PULSE 72; RESP 18; TEMP 36.6; O2SAT 98
[2023-01-12] MEDS: OLANZapine 7.5 MG TABLET PO ×2 (08:09→20:21)
--- NOTE | 2023-01-12 15:03 | P.PNPSI_ITS ---
Subjective Subjective Date of Service: 01/12/23 Reason For Visit: Schizophrenia Subjective Notes: Conditional Voluntary Healthcare Proxy: No Guardianship: No Medical Problems Affecting Mental Status: No Interim History: Pt continues symptomatic, responding to internal stimuli, anxious to discharge to pack her belongings. Appears internally preoccupied at times. Team has reached parents and discussed pt's admission and discharge planning. Discussed with pt rationale for discharge on 01/16 to prepare to travel. She will have a flight team of RN and MD per [facility] team report. Parents will meet her on arrival at the terminal. Medication Compliance: Yes Side effects from medications: No Attending Groups: Intermittent Review of Systems Acute medical concerns: No Medical Review of Systems: unchanged Mental Status Exam Mental Status Exam Patient Appearance: Appropriate Patient Orientation: Person and Place Level of Consciousness: Alert Patient Behavior: Appropriate, Talkative, Cooperative, Anxious, Distractible, Good Eye Contact and Pacing Mood Description: Anxious and Apprehensive Affect Description: Anxious and Apprehensive Patient Cognition Impaired: No Ability to Follow Directions: Good Speech Pattern: Spontaneous Speech Memory Description: Episodic Impaired Delusions: Present Perceptual Disturbances: Derealization Thought Process: Distracted Thought Content: positive for Obsessional Thoughts (intrusive), positive for Perseveration and positive for Suicidal Ideation (denies) Depressive Symptoms: Increased Anxiety and Thoughts of /Suicide (denies) Abnormal Motor Activity Signs and Symptoms: Restlessness Judgement: Fair Diagnostics Vital Signs (24Hr): Vital Signs - 24 hr 01/11/23 17:07 01/12/23 08:05 Temperature 97.9 F 97.8 F Pulse Rate 112 H 72 Respiratory Rate 18 Blood Pressure 133/83 133/68 Pulse Oximetry 98 Oxygen Delivery Method Room Air BMI result Body Mass Index 31.8 Labs 01/04/23 17:01 01/04/23 17:01 Medications Medications Current Medications Acetaminophen (Acetaminophen 325 Mg Tablet) 650 mg PO Q6H PRN PRN Reason: Headache/Pain Mild Scale (1-3) Al Hydroxide/Mg Hydroxide (Magnesium Hydrox/Alum Hydrox 30 Ml Oral.Susp) 30 ml PO Q6H PRN PRN Reason: Heartburn/Nausea Hydroxyzine HCl (Hydroxyzine Hcl 25 Mg Tablet) 25 mg PO Q6H PRN PRN Reason: Anxiety Lorazepam (Lorazepam 0.5 Mg Tablet) 0.5 mg PO BEDTIME PRN PRN Reason: Insomnia Magnesium Hydroxide (Milk Of Magnesia 30 Ml Oral.Susp) 30 ml PO DAILY PRN PRN Reason: Constipation Olanzapine (Olanzapine 7.5 Mg Tablet) 7.5 mg PO BID MANFRED Last Admin: 01/12/23 08:09 Dose: 7.5 mg Trazodone HCl (Trazodone Hcl 50 Mg Tablet) 50 mg PO BEDTIME MRX1 PRN PRN Reason: Insomnia Allergies Allergies Allergy/AdvReac Type Severity Reaction Status Date / Time No Known Allergies Allergy Verified 01/04/23 16:03 Assessment & Plan Assessment & Plan (1) Suicidal ideation: Status: Acute Code(s): R45.851 - Suicidal ideations (2) Schizoaffective disorder, bipolar type: Status: Acute Code(s): F25.0 - Schizoaffective disorder, bipolar type Plan 17 yo female, student of [employer] presents with symptoms of depression, psychosis she reports since her spring break. Reports sx first presented at age 12. Plan: Haldol 5 mg x 1 Ativan 1 mg x 1 Olanzapine 5 mg bid 01/07: Continue current tx plan. 01/08: Continue current plan 01/09/23: Continue current plan. Facilitate safe return to family in [place] 01/10/23: Increase Olanzapine to 7.5 mg bid 01/11/23: Continue current plan Team attempting to contact parents Tentative discharge for 01/16 for return flight with a travel counselor [employer] for 01/17/23. 01/12/23: Continue current regime and plan. Patient educated on: therapeutic strategies Informed Consent: further education needed Reason for continued inpatient stay Substantial Risk for: rapid decompensation Time Spent With Patient Time: Total time managing care of this patient today ____ minutes.
[2023-01-12 18:00] VITALS: BP 139/85; PULSE 94; RESP 16; TEMP 36.6; O2SAT 97
[2023-01-13 06:00] VITALS: BP 110/64; PULSE 120; RESP 16; TEMP 36.8; O2SAT 98
[2023-01-13] MEDS: OLANZapine 7.5 MG TABLET PO ×2 (08:17→20:46)
--- NOTE | 2023-01-13 15:01 | P.PNPSI_ITS ---
Subjective Subjective Date of Service: 01/13/23 Reason For Visit: Schizophrenia Subjective Notes: Conditional Voluntary Healthcare Proxy: No Guardianship: No Medical Problems Affecting Mental Status: No Interim History: Lee Ann remains tangential and disorganized at times. She is tolerating Olanzapine and her mood is less labile. Team is working on her safe return to family. Per her assigned flight team, she will most likely not travel with her peers on 01/17, but will leave with the flight team directely from the unit later next week to fly directly to [facility] for more direct travel. She will return to [facility] Spring 2023 if improved. Today, Lee Ann continues to discuss wanting to leave to pack her belongings in preparation for travel. Plans reviewed with her. Discussed possible precipitants to symptom presentation over her spring break. She denies any knowledge of why symptoms presented, she believes it may have been due to isolation. She denies any traumatic experience during this time. Medication Compliance: Yes Side effects from medications: No Attending Groups: Intermittent Review of Systems Acute medical concerns: No Medical Review of Systems: unchanged Mental Status Exam Mental Status Exam Patient Appearance: Appropriate Patient Orientation: Person, Place, Time and Situation Level of Consciousness: Alert Patient Behavior: Appropriate, Guarded, Talkative, Cooperative, Passive, Anxious, Fearful, Avoidant, Distractible, Isolative and Good Eye Contact Mood Description: Fearful, Anxious, Nervous and Apprehensive Affect Description: Anxious and Apprehensive Patient Cognition Impaired: No Ability to Follow Directions: Fair Speech Pattern: Spontaneous Speech Memory Description: Episodic Impaired Hallucinations: Auditory (denies) Delusions: Present Perceptual Disturbances: Depersonalization and Derealization Thought Process: Illogical and Distracted Thought Content: positive for Flight of Ideas, positive for Circumstantial, positive for Suicidal Ideation (denies) and positive for Homicidal Ideation (denies) Depressive Symptoms: Increased Anxiety and Thoughts of /Suicide (denies) Judgement: Fair Diagnostics Vital Signs (24Hr): Vital Signs - 24 hr 01/12/23 18:00 01/13/23 06:00 Temperature 97.8 F 98.3 F Pulse Rate 94 120 H Respiratory Rate 16 16 Blood Pressure 139/85 110/64 Pulse Oximetry 97 98 Oxygen Delivery Method Room Air Room Air BMI result Body Mass Index 31.8 Labs 01/04/23 17:01 01/04/23 17:01 Medications Medications Current Medications Acetaminophen (Acetaminophen 325 Mg Tablet) 650 mg PO Q6H PRN PRN Reason: Headache/Pain Mild Scale (1-3) Al Hydroxide/Mg Hydroxide (Magnesium Hydrox/Alum Hydrox 30 Ml Oral.Susp) 30 ml PO Q6H PRN PRN Reason: Heartburn/Nausea Hydroxyzine HCl (Hydroxyzine Hcl 25 Mg Tablet) 25 mg PO Q6H PRN PRN Reason: Anxiety Lorazepam (Lorazepam 0.5 Mg Tablet) 0.5 mg PO BEDTIME PRN PRN Reason: Insomnia Magnesium Hydroxide (Milk Of Magnesia 30 Ml Oral.Susp) 30 ml PO DAILY PRN PRN Reason: Constipation Olanzapine (Olanzapine 7.5 Mg Tablet) 7.5 mg PO BID [facility] Last Admin: 01/13/23 08:17 Dose: 7.5 mg Trazodone HCl (Trazodone Hcl 50 Mg Tablet) 50 mg PO BEDTIME MRX1 PRN PRN Reason: Insomnia Allergies Allergies Allergy/AdvReac Type Severity Reaction Status Date / Time No Known Allergies Allergy Verified 01/04/23 16:03 Assessment & Plan Assessment & Plan (1) Suicidal ideation: Status: Acute Code(s): R45.851 - Suicidal ideations Assessment and Plan: 01/13/23- Pt denies SI plan or intent today. (2) Schizoaffective disorder, bipolar type: Status: Acute Code(s): F25.0 - Schizoaffective disorder, bipolar type Plan 17 yo female, student of [employer] presents with symptoms of depression, psychosis she reports since her spring break. Reports sx first presented at age 12. Plan: Haldol 5 mg x 1 Ativan 1 mg x 1 Olanzapine 5 mg bid 01/07: Continue current tx plan. 01/08: Continue current plan 01/09/23: Continue current plan. Facilitate safe return to family in [place] 01/10/23: Increase Olanzapine to 7.5 mg bid 01/11/23: Continue current plan Team attempting to contact parents Tentative discharge for 01/16 for return flight with a defense travel administrator for 01/17/23. 01/12/23: Continue current regime and plan. 01/13/23: Discharge when flight travel medical team is prepared to assist pt with her return to her family. Support, encourage alliance, ongoing medication review for efficacy. Patient educated on: therapeutic strategies Informed Consent: further education needed Reason for continued inpatient stay Substantial Risk for: rapid decompensation Time Spent With Patient Time: Total time managing care of this patient today ____ minutes.
[2023-01-13 18:00] VITALS: BP 130/75; PULSE 104; RESP 14; TEMP 36.6; O2SAT 99
[2023-01-14 06:00] VITALS: BP 128/80; PULSE 90; RESP 14; TEMP 36.6; O2SAT 100
[2023-01-14] MEDS: OLANZapine 7.5 MG TABLET PO ×2 (09:26→20:10)
--- NOTE | 2023-01-14 09:26 | P.PNPSI_ITS ---
Subjective Subjective Date of Service: 01/14/23 Reason For Visit: Schizophrenia Interim History: met with pt; discussed with team pt remains disorganized, pacing halls, sometimes jumping up and down; last night made a comment about a visual hallucination however today denies. Patient asked commercial real estate underwriter what she should do about the voices telling her to torture herself; commercial real estate underwriter explained how this is not real but her mind playing tricks on her.. Pt taking medications and slept through the night. Mental Status Exam Mental Status Exam Patient Appearance: Appropriate Patient Orientation: Person, Place, Time and Situation Level of Consciousness: Alert Patient Behavior: Appropriate, Talkative, Cooperative, Passive, Anxious, Fearful, Distractible, Isolative and Good Eye Contact Mood Description: Anxious, Nervous and Apprehensive Affect Description: Anxious and Apprehensive Patient Cognition Impaired: No Ability to Follow Directions: Fair Speech Pattern: Spontaneous Speech Memory Description: Episodic Impaired Hallucinations: Auditory and Visual Delusions: Present Perceptual Disturbances: Depersonalization and Derealization Thought Process: Illogical, Distracted and Goal Oriented (Can be at times) Thought Content: positive for Flight of Ideas, positive for Circumstantial, positive for Preoccupation (With delusional thoughts), positive for Suicidal Ideation (denies) and positive for Homicidal Ideation (denies) Judgement and Insight: Impaired Diagnostics Vital Signs (24Hr): Vital Signs - 24 hr 01/13/23 18:00 Temperature 98 F Pulse Rate 104 H Respiratory Rate 14 Blood Pressure 130/75 Pulse Oximetry 99 Oxygen Delivery Method Room Air BMI result Body Mass Index 31.8 Labs 01/04/23 17:01 01/04/23 17:01 Medications Medications Current Medications Acetaminophen (Acetaminophen 325 Mg Tablet) 650 mg PO Q6H PRN PRN Reason: Headache/Pain Mild Scale (1-3) Al Hydroxide/Mg Hydroxide (Magnesium Hydrox/Alum Hydrox 30 Ml Oral.Susp) 30 ml PO Q6H PRN PRN Reason: Heartburn/Nausea Hydroxyzine HCl (Hydroxyzine Hcl 25 Mg Tablet) 25 mg PO Q6H PRN PRN Reason: Anxiety Lorazepam (Lorazepam 0.5 Mg Tablet) 0.5 mg PO BEDTIME PRN PRN Reason: Insomnia Magnesium Hydroxide (Milk Of Magnesia 30 Ml Oral.Susp) 30 ml PO DAILY PRN PRN Reason: Constipation Olanzapine (Olanzapine 7.5 Mg Tablet) 7.5 mg PO BID [facility] Last Admin: 01/13/23 20:46 Dose: 7.5 mg Trazodone HCl (Trazodone Hcl 50 Mg Tablet) 50 mg PO BEDTIME MRX1 PRN PRN Reason: Insomnia Allergies Allergies Allergy/AdvReac Type Severity Reaction Status Date / Time No Known Allergies Allergy Verified 01/04/23 16:03 Assessment & Plan Assessment & Plan (1) Suicidal ideation: Status: Acute Code(s): R45.851 - Suicidal ideations Assessment and Plan: 01/13/23- Pt denies SI plan or intent today. (2) Schizoaffective disorder, bipolar type: Status: Acute Code(s): F25.0 - Schizoaffective disorder, bipolar type Plan 17 yo female, student of [employer] presents with symptoms of depression, psychosis she reports since her spring break. Reports sx first presented at age 12. Plan: Haldol 5 mg x 1 Ativan 1 mg x 1 Olanzapine 5 mg bid 01/07: Continue current tx plan. 01/08: Continue current plan 01/09/23: Continue current plan. Facilitate safe return to family in [place] 01/10/23: Increase Olanzapine to 7.5 mg bid 01/11/23: Continue current plan Team attempting to contact parents Tentative discharge for 01/16 for return flight with a automobile club travel counselor for 01/17/23. 01/12/23: Continue current regime and plan. 01/13/23: Discharge when flight travel medical team is prepared to assist pt with her return to her family. Support, encourage alliance, ongoing medication review for efficacy. 01/14/23: continue current treatment plan with planned dc on Monday Patient educated on: diagnosis Informed Consent: understands, does not understand and further education needed Reason for continued inpatient stay Substantial Risk for: inability to function Time Spent With Patient Time: Total time managing care of this patient today ____ minutes.
[2023-01-14 18:00] VITALS: BP 122/76; PULSE 85; RESP 16; TEMP 36.4; O2SAT 98
[2023-01-15] MEDS: OLANZapine 7.5 MG TABLET PO ×2 (09:08→19:31)
[2023-01-15 09:21] VITALS: BP 118/78; PULSE 84; RESP 16; TEMP 36.6
[2023-01-15] MEDS: LORazepam 0.5 MG TABLET PO (12:00)
--- NOTE | 2023-01-15 14:31 | HO.PSYCHPN ---
Subjective Subjective Date of Service: 01/15/23 Reason For Visit: Schizophrenia Interim History: Met with patient; discussed with team Patient continues to have trouble thoughts however she said no auditory hallucinations today. She also said I do not want to torture myself. How can I learned to be kind to myself? Grab positive thoughts? She also asked if there were others like her who struggle with similar things. Mental Status Exam Mental Status Exam Patient Appearance: Appropriate Patient Orientation: Person, Place, Time and Situation Level of Consciousness: Alert Patient Behavior: Appropriate, Talkative, Cooperative, Passive, Anxious, Fearful, Distractible, Isolative and Good Eye Contact Mood Description: Anxious, Nervous and Apprehensive Affect Description: Anxious and Apprehensive Patient Cognition Impaired: No Ability to Follow Directions: Fair Speech Pattern: Spontaneous Speech Memory Description: Episodic Impaired Hallucinations: Auditory Delusions: Present Perceptual Disturbances: Depersonalization and Derealization Thought Process: Illogical, Distracted and Goal Oriented (Can be at times) Thought Content: positive for Flight of Ideas, positive for Circumstantial, positive for Preoccupation (With delusional thoughts), positive for Suicidal Ideation (denies) and positive for Homicidal Ideation (denies) Judgement and Insight: Impaired Diagnostics Vital Signs (24Hr): Vital Signs - 24 hr 01/14/23 18:00 01/15/23 09:21 Temperature 97.6 F 98 F Pulse Rate 85 84 Respiratory Rate 16 16 Blood Pressure 122/76 118/78 Pulse Oximetry 98 Oxygen Delivery Method Room Air BMI result Body Mass Index 31.8 Labs 01/04/23 17:01 01/04/23 17:01 Medications Medications Current Medications Acetaminophen (Acetaminophen 325 Mg Tablet) 650 mg PO Q6H PRN PRN Reason: Headache/Pain Mild Scale (1-3) Al Hydroxide/Mg Hydroxide (Magnesium Hydrox/Alum Hydrox 30 Ml Oral.Susp) 30 ml PO Q6H PRN PRN Reason: Heartburn/Nausea Hydroxyzine HCl (Hydroxyzine Hcl 25 Mg Tablet) 25 mg PO Q6H PRN PRN Reason: Anxiety Lorazepam (Lorazepam 0.5 Mg Tablet) 0.5 mg PO BEDTIME PRN PRN Reason: Insomnia Last Admin: 01/15/23 12:00 Dose: 0.5 mg Magnesium Hydroxide (Milk Of Magnesia 30 Ml Oral.Susp) 30 ml PO DAILY PRN PRN Reason: Constipation Olanzapine (Olanzapine 7.5 Mg Tablet) 7.5 mg PO BID [facility] Last Admin: 01/15/23 09:08 Dose: 7.5 mg Trazodone HCl (Trazodone Hcl 50 Mg Tablet) 50 mg PO BEDTIME MRX1 PRN PRN Reason: Insomnia Allergies Allergies Allergy/AdvReac Type Severity Reaction Status Date / Time No Known Allergies Allergy Verified 01/04/23 16:03 Assessment & Plan Assessment & Plan (1) Suicidal ideation: Status: Acute Code(s): R45.851 - Suicidal ideations Assessment and Plan: 01/13/23- Pt denies SI plan or intent today. (2) Schizoaffective disorder, bipolar type: Status: Acute Code(s): F25.0 - Schizoaffective disorder, bipolar type Plan 17 yo female, student of [employer] presents with symptoms of depression, psychosis she reports since her spring break. Reports sx first presented at age 12. Plan: Haldol 5 mg x 1 Ativan 1 mg x 1 Olanzapine 5 mg bid 01/07: Continue current tx plan. 01/08: Continue current plan 01/09/23: Continue current plan. Facilitate safe return to family in [place] 01/10/23: Increase Olanzapine to 7.5 mg bid 01/11/23: Continue current plan Team attempting to contact parents Tentative discharge for 01/16 for return flight with a traveling auditor for 01/17/23. 01/12/23: Continue current regime and plan. 01/13/23: Discharge when flight travel medical team is prepared to assist pt with her return to her family. Support, encourage alliance, ongoing medication review for efficacy. 01/14/23: continue current treatment plan with planned dc on Monday01/15/23: Patient shared some insight, wanting to resist delusions/AH. Otherwise no change in presentation. Continue current treatment plan with planned dc on Monday Patient educated on: diagnosis and medication risk/benefits Informed Consent: understands, does not understand and further education needed Reason for continued inpatient stay Substantial Risk for: inability to function Time Spent With Patient Time: Total time managing care of this patient today ____ minutes.
[2023-01-15 18:00] VITALS: BP 119/78; PULSE 85; RESP 16; TEMP 36.4; O2SAT 99
[2023-01-16] MEDS: OLANZapine 7.5 MG TABLET PO (08:17)
[2023-01-16 08:24] VITALS: BP 130/72; PULSE 128; RESP 16; TEMP 36.1; O2SAT 98
[2023-01-16] MEDS: HaloperidoL 1 MG TABLET PO ×2 (09:44→20:02)
--- NOTE | 2023-01-16 12:16 | P.PNPSI_ITS ---
Subjective Subjective Date of Service: 01/16/23 Reason For Visit: Schizophrenia Subjective Notes: Conditional Voluntary Healthcare Proxy: No Guardianship: No Medical Problems Affecting Mental Status: No Interim History: Reviewed in team. Weekend reports of ongoing symptoms of psychosis, reports of voices, visions. Checks changed to 15 minute Olanzapine changed to Zydis and increased to 10 mg bid Haldol 1 mg bid added Preparing pt to return to [place] with her flight team this week. Anxious when we met- you won't forget to send me home will you.? Discussed plan to have flight RN/MD to accompany her, that they were making accomodations which would be of improved service-decreasing flight time to 13 hours, plus 4 hours in a more direct route. Pt pleased with this plan. Discussed symptoms-pt believes she will need the 2022 to recover. Discussed goal of medications to decrease/eliminate her symptoms. She verbalizes understanding of this. Medication Compliance: Yes Side effects from medications: No Attending Groups: Intermittent Review of Systems Acute medical concerns: No Medical Review of Systems: unchanged Mental Status Exam Mental Status Exam Patient Appearance: Appropriate Patient Orientation: Person, Place, Time and Situation Level of Consciousness: Alert Patient Behavior: Talkative, Cooperative and Good Eye Contact Mood Description: Suspicious, Withdrawn, Fearful, Anxious, Nervous and Apprehensive Affect Description: Fearful and Apprehensive Patient Cognition Impaired: No Ability to Follow Directions: Fair Speech Pattern: Spontaneous Speech Memory Description: Episodic Impaired Hallucinations: Auditory and Visual Delusions: Being Controlled, Paranoid Ideation and Present Perceptual Disturbances: Depersonalization and Derealization Thought Process: Distracted Thought Content: positive for Racing, positive for Circumstantial, positive for Perseveration and positive for Suicidal Ideation (denies) Depressive Symptoms: Increased Anxiety and Difficulty Concentrating Abnormal Motor Activity Signs and Symptoms: Restlessness Judgement: Poor Diagnostics Vital Signs (24Hr): Vital Signs - 24 hr 01/15/23 18:00 01/16/23 08:24 Temperature 97.6 F 97.0 F Pulse Rate 85 128 H Respiratory Rate 16 16 Blood Pressure 119/78 130/72 Pulse Oximetry 99 98 Oxygen Delivery Method Room Air Room Air BMI result Body Mass Index 31.8 Labs 01/04/23 17:01 01/04/23 17:01 Medications Medications Current Medications Acetaminophen (Acetaminophen 325 Mg Tablet) 650 mg PO Q6H PRN PRN Reason: Headache/Pain Mild Scale (1-3) Al Hydroxide/Mg Hydroxide (Magnesium Hydrox/Alum Hydrox 30 Ml Oral.Susp) 30 ml PO Q6H PRN PRN Reason: Heartburn/Nausea Haloperidol (Haloperidol 1 Mg Tablet) 1 mg PO BID [facility] Last Admin: 01/16/23 09:44 Dose: 1 mg Hydroxyzine HCl (Hydroxyzine Hcl 25 Mg Tablet) 25 mg PO Q6H PRN PRN Reason: Anxiety Lorazepam (Lorazepam 0.5 Mg Tablet) 0.5 mg PO BEDTIME PRN PRN Reason: Insomnia Last Admin: 01/15/23 12:00 Dose: 0.5 mg Magnesium Hydroxide (Milk Of Magnesia 30 Ml Oral.Susp) 30 ml PO DAILY PRN PRN Reason: Constipation Olanzapine (Olanzapine Odt 10 Mg Tab.Rapdis) 10 mg TRANSLINGU BID [facility] Trazodone HCl (Trazodone Hcl 50 Mg Tablet) 50 mg PO BEDTIME MRX1 PRN PRN Reason: Insomnia Allergies Allergies Allergy/AdvReac Type Severity Reaction Status Date / Time No Known Allergies Allergy Verified 01/04/23 16:03 Assessment & Plan Assessment & Plan (1) Suicidal ideation: Status: Acute Code(s): R45.851 - Suicidal ideations Assessment and Plan: 01/13/23- Pt denies SI plan or intent today. (2) Schizoaffective disorder, bipolar type: Status: Acute Code(s): F25.0 - Schizoaffective disorder, bipolar type Plan 17 yo female, student of [employer] presents with symptoms of depression, psychosis she reports since her spring break. Reports sx first presented at age 12. Plan: Haldol 5 mg x 1 Ativan 1 mg x 1 Olanzapine 5 mg bid 01/07: Continue current tx plan. 01/08: Continue current plan 01/09/23: Continue current plan. Facilitate safe return to family in [place] 01/10/23: Increase Olanzapine to 7.5 mg bid 01/11/23: Continue current plan Team attempting to contact parents Tentative discharge for 01/16 for return flight with a travel ticketing reviewer for 01/17/23. 01/12/23: Continue current regime and plan. 01/13/23: Discharge when flight travel medical team is prepared to assist pt with her return to her family. Support, encourage alliance, ongoing medication review for efficacy. 01/14/23: continue current treatment plan with planned dc on Monday01/15/23: Patient shared some insight, wanting to resist delusions/AH. Otherwise no change in presentation. Continue current treatment plan with planned dc on Monday01/16/23: Discharge this week. Flight team is planning a less stressful, time consuming travel plan which they are working on Discontinue Olanzapine. Zydis 10 mg bid Haldol 1 mg bid Patient educated on: therapeutic strategies Informed Consent: further education needed Reason for continued inpatient stay Substantial Risk for: rapid decompensation Time Spent With Patient Time: Total time managing care of this patient today ____ minutes.
[2023-01-16 16:48] VITALS: BP 126/77; PULSE 92; TEMP 36.4
[2023-01-16] MEDS: OLANZapine ODT 10 MG TAB.RAPDIS TRANSLINGU (20:02)
[2023-01-17 08:20] VITALS: BP 130/77; PULSE 96; RESP 16; TEMP 36.7; O2SAT 97
[2023-01-17] MEDS: HaloperidoL 1 MG TABLET PO ×2 (08:22→20:07)
[2023-01-17] MEDS: OLANZapine ODT 10 MG TAB.RAPDIS TRANSLINGU ×2 (08:22→20:07)
--- NOTE | 2023-01-17 09:00 | ECG_ITS ---
Test Reason : ck qt Blood Pressure : / mmHG Vent. Rate : 084 BPM Atrial Rate : 084 BPM P-R Int : 134 ms QRS Dur : 082 ms QT Int : 364 ms P-R-T Axes : 063 092 044 degrees QTc Int : 430 ms Normal sinus rhythm with sinus arrhythmia Rightward axis Borderline ECG When compared with ECG of 05-JAN-2023 16:32, No significant change was found Referred By: Elizabeth Keating Electronically Signed By:IGOR ROUSSEAU
--- NOTE | 2023-01-17 13:34 | P.PNPSI_ITS ---
Subjective Subjective Date of Service: 01/17/23 Reason For Visit: Schizophrenia Subjective Notes: Conditional Voluntary Healthcare Proxy: No Guardianship: No Medical Problems Affecting Mental Status: No Interim History: Team reports pt has made contact with [facility] and they report she sounds improved today, clearer thought process and ability to retain. Possible positive response from addition of very low dose Haldol on 01/16. She continues to ask to discharge to school and home. Discussed her medical flight team making arrangements to assist her home safety. Responds to reassurance. Anxious and childlike at times. She is attending groups and socializing at times with peers. Medication Compliance: Yes Side effects from medications: No Attending Groups: Yes Review of Systems Acute medical concerns: No Medical Review of Systems: unchanged Mental Status Exam Mental Status Exam Patient Appearance: Appropriate Patient Orientation: Person, Place, Time and Situation Level of Consciousness: Alert Patient Behavior: Talkative, Cooperative and Good Eye Contact Mood Description: Suspicious, Withdrawn, Fearful, Anxious, Nervous and Apprehensive Affect Description: Fearful and Apprehensive Patient Cognition Impaired: No Ability to Follow Directions: Fair Speech Pattern: Spontaneous Speech Memory Description: Episodic Impaired Hallucinations: Auditory and Visual Delusions: Being Controlled, Paranoid Ideation and Present Perceptual Disturbances: Depersonalization and Derealization Thought Process: Distracted Thought Content: positive for Racing, positive for Circumstantial, positive for Perseveration and positive for Suicidal Ideation (denies) Depressive Symptoms: Increased Anxiety and Difficulty Concentrating Abnormal Motor Activity Signs and Symptoms: Restlessness Judgement: Poor Diagnostics Vital Signs (24Hr): Vital Signs - 24 hr 01/16/23 16:48 01/17/23 08:20 Temperature 97.6 F 98.1 F Pulse Rate 92 96 Respiratory Rate 16 Blood Pressure 126/77 130/77 Pulse Oximetry 97 Oxygen Delivery Method Room Air BMI result Body Mass Index 31.8 Labs 01/04/23 17:01 01/04/23 17:01 Medications Medications Current Medications Acetaminophen (Acetaminophen 325 Mg Tablet) 650 mg PO Q6H PRN PRN Reason: Headache/Pain Mild Scale (1-3) Al Hydroxide/Mg Hydroxide (Magnesium Hydrox/Alum Hydrox 30 Ml Oral.Susp) 30 ml PO Q6H PRN PRN Reason: Heartburn/Nausea Haloperidol (Haloperidol 1 Mg Tablet) 1 mg PO BID [facility] Last Admin: 01/17/23 08:22 Dose: 1 mg Hydroxyzine HCl (Hydroxyzine Hcl 25 Mg Tablet) 25 mg PO Q6H PRN PRN Reason: Anxiety Lorazepam (Lorazepam 0.5 Mg Tablet) 0.5 mg PO BEDTIME PRN PRN Reason: Insomnia Last Admin: 01/15/23 12:00 Dose: 0.5 mg Magnesium Hydroxide (Milk Of Magnesia 30 Ml Oral.Susp) 30 ml PO DAILY PRN PRN Reason: Constipation Olanzapine (Olanzapine Odt 10 Mg Tab.Rapdis) 10 mg TRANSLINGU BID [facility] Last Admin: 01/17/23 08:22 Dose: 10 mg Trazodone HCl (Trazodone Hcl 50 Mg Tablet) 50 mg PO BEDTIME MRX1 PRN PRN Reason: Insomnia Allergies Allergies Allergy/AdvReac Type Severity Reaction Status Date / Time No Known Allergies Allergy Verified 01/04/23 16:03 Assessment & Plan Assessment & Plan (1) Suicidal ideation: Status: Acute Code(s): R45.851 - Suicidal ideations Assessment and Plan: 01/13/23- Pt denies SI plan or intent today. (2) Schizoaffective disorder, bipolar type: Status: Acute Code(s): F25.0 - Schizoaffective disorder, bipolar type Plan 17 yo female, student of [employer] presents with symptoms of depression, psychosis she reports since her spring break. Reports sx first presented at age 12. Plan: Haldol 5 mg x 1 Ativan 1 mg x 1 Olanzapine 5 mg bid 01/07: Continue current tx plan. 01/08: Continue current plan 01/09/23: Continue current plan. Facilitate safe return to family in [place] 01/10/23: Increase Olanzapine to 7.5 mg bid 01/11/23: Continue current plan Team attempting to contact parents Tentative discharge for 01/16 for return flight with a travel attendants for 01/17/23. 01/12/23: Continue current regime and plan. 01/13/23: Discharge when flight travel medical team is prepared to assist pt with her return to her family. Support, encourage alliance, ongoing medication review for efficacy. 01/14/23: continue current treatment plan with planned dc on Monday01/15/23: Patient shared some insight, wanting to resist delusions/AH. Otherwise no change in presentation. Continue current treatment plan with planned dc on Monday01/16/23: Discharge this week. Flight team is planning a less stressful, time consuming travel plan which they are working on Discontinue Olanzapine. Zydis 10 mg bid Haldol 1 mg bid 01/17/23: Continue current regime Discharge planning. Patient educated on: therapeutic strategies Informed Consent: further education needed Reason for continued inpatient stay Substantial Risk for: harm to self and rapid decompensation Time Spent With Patient Time: Total time managing care of this patient today ____ minutes.
[2023-01-17 16:09] VITALS: BP 129/75; PULSE 116; TEMP 36.2
[2023-01-18 08:35] VITALS: BP 130/83; PULSE 106; RESP 18; TEMP 36.1; O2SAT 96
[2023-01-18] MEDS: HaloperidoL 1 MG TABLET PO (08:39)
[2023-01-18] MEDS: OLANZapine ODT 10 MG TAB.RAPDIS TRANSLINGU ×2 (08:39→20:21)
--- NOTE | 2023-01-18 13:00 | P.PNPSI_ITS ---
Subjective Subjective Date of Service: 01/18/23 Reason For Visit: Schizophrenia Subjective Notes: Conditional Voluntary Healthcare Proxy: No Guardianship: No Medical Problems Affecting Mental Status: No Interim History: Visable and interactive in milieu with team and peers. Attending some groups. Anxious to get some confirmation about going home. Flight team believes 01/20 will be the day. Haldol increase to 2 mg bid. Team, [facility] team believe this to be more effective with sx mgt. Will begin Olanzapine decrease as tolerated Medication Compliance: Yes Side effects from medications: No Attending Groups: Intermittent Review of Systems Acute medical concerns: No Medical Review of Systems: unchanged Mental Status Exam Mental Status Exam Patient Appearance: Appropriate Patient Orientation: Person, Place, Time and Situation Level of Consciousness: Alert Patient Behavior: Talkative, Cooperative and Good Eye Contact Mood Description: Suspicious, Withdrawn, Fearful, Anxious, Nervous and Apprehensive Affect Description: Fearful and Apprehensive Patient Cognition Impaired: No Ability to Follow Directions: Fair Speech Pattern: Spontaneous Speech Memory Description: Episodic Impaired Hallucinations: Auditory and Visual Delusions: Being Controlled, Paranoid Ideation and Present Perceptual Disturbances: Depersonalization and Derealization Thought Process: Distracted Thought Content: positive for Racing, positive for Circumstantial, positive for Perseveration and positive for Suicidal Ideation (denies) Depressive Symptoms: Increased Anxiety and Difficulty Concentrating Abnormal Motor Activity Signs and Symptoms: Restlessness Judgement: Poor Diagnostics Vital Signs (24Hr): Vital Signs - 24 hr 01/17/23 16:09 01/18/23 08:35 Temperature 97.1 F 97.0 F Pulse Rate 116 H 106 H Respiratory Rate 18 Blood Pressure 129/75 130/83 Pulse Oximetry 96 Oxygen Delivery Method Room Air BMI result Body Mass Index 31.8 Labs 01/04/23 17:01 01/04/23 17:01 Medications Medications Current Medications Acetaminophen (Acetaminophen 325 Mg Tablet) 650 mg PO Q6H PRN PRN Reason: Headache/Pain Mild Scale (1-3) Al Hydroxide/Mg Hydroxide (Magnesium Hydrox/Alum Hydrox 30 Ml Oral.Susp) 30 ml PO Q6H PRN PRN Reason: Heartburn/Nausea Haloperidol (Haloperidol 1 Mg Tablet) 2 mg PO BID MANFRED Hydroxyzine HCl (Hydroxyzine Hcl 25 Mg Tablet) 25 mg PO Q6H PRN PRN Reason: Anxiety Lorazepam (Lorazepam 0.5 Mg Tablet) 0.5 mg PO BEDTIME PRN PRN Reason: Insomnia Last Admin: 01/15/23 12:00 Dose: 0.5 mg Magnesium Hydroxide (Milk Of Magnesia 30 Ml Oral.Susp) 30 ml PO DAILY PRN PRN Reason: Constipation Olanzapine (Olanzapine Odt 10 Mg Tab.Rapdis) 10 mg TRANSLINGU BID MANFRED Last Admin: 01/18/23 08:39 Dose: 10 mg Trazodone HCl (Trazodone Hcl 50 Mg Tablet) 50 mg PO BEDTIME MRX1 PRN PRN Reason: Insomnia Allergies Allergies Allergy/AdvReac Type Severity Reaction Status Date / Time No Known Allergies Allergy Verified 01/04/23 16:03 Assessment & Plan Assessment & Plan (1) Suicidal ideation: Status: Acute Code(s): R45.851 - Suicidal ideations Assessment and Plan: Pt denies SI plan or intent today. (2) Schizoaffective disorder, bipolar type: Status: Acute Code(s): F25.0 - Schizoaffective disorder, bipolar type Plan 17 yo female, student of [employer] presents with symptoms of depression, psychosis she reports since her spring break. Reports sx first presented at age 12. Plan: Haldol 5 mg x 1 Ativan 1 mg x 1 Olanzapine 5 mg bid 01/07: Continue current tx plan. 01/08: Continue current plan 01/09/23: Continue current plan. Facilitate safe return to family in [place] 01/10/23: Increase Olanzapine to 7.5 mg bid 01/11/23: Continue current plan Team attempting to contact parents Tentative discharge for 01/16 for return flight with a automobile travel club counselor for 01/17/23. 01/12/23: Continue current regime and plan. 01/13/23: Discharge when flight travel medical team is prepared to assist pt with her return to her family. Support, encourage alliance, ongoing medication review for efficacy. 01/14/23: continue current treatment plan with planned dc on Monday01/15/23: Patient shared some insight, wanting to resist delusions/AH. Otherwise no change in presentation. Continue current treatment plan with planned dc on Monday01/16/23: Discharge this week. Flight team is planning a less stressful, time consuming travel plan which they are working on Discontinue Olanzapine. Zydis 10 mg bid Haldol 1 mg bid 01/17/23: Continue current regime Discharge planning. 01/18/23: Continue current regime and plan of care. Patient educated on: therapeutic strategies Informed Consent: further education needed Reason for continued inpatient stay Substantial Risk for: rapid decompensation Time Spent With Patient Time: Total time managing care of this patient today ____ minutes.
[2023-01-18 16:03] VITALS: BP 126/85; PULSE 126; TEMP 36.1; O2SAT 97
[2023-01-18] MEDS: hydrOXYzine HCL 25 MG TABLET PO (17:15)
[2023-01-18] MEDS: HaloperidoL 1 MG TABLET 2 MG PO (20:21)
[2023-01-19 07:00] VITALS: BMI 31.6
[2023-01-19 08:00] VITALS: BP 131/72; PULSE 83; RESP 18; TEMP 37.1; O2SAT 96
[2023-01-19] MEDS: HaloperidoL 1 MG TABLET 2 MG PO ×2 (08:22→19:49)
[2023-01-19] MEDS: OLANZapine ODT 10 MG TAB.RAPDIS TRANSLINGU ×2 (08:23→19:49)
[2023-01-19 16:36] VITALS: BP 118/72; PULSE 100; RESP 16; TEMP 36.4; O2SAT 96
--- NOTE | 2023-01-19 16:52 | P.PNPSI_ITS ---
Subjective Subjective Date of Service: 01/19/23 Reason For Visit: Schizophrenia Subjective Notes: Conditional Voluntary Healthcare Proxy: No Guardianship: No Medical Problems Affecting Mental Status: No Interim History: Lee Ann is apprehensive, excited, happy, they say Monday, maybe Monday I will go home. Denies SI, HI. Denies intrusive thoughts, AH, VH. Visable in milieu Well connected with team, peers and team members who are able to communicate in her [place] language. Medication Compliance: Yes Side effects from medications: No Attending Groups: Intermittent Review of Systems Acute medical concerns: No Medical Review of Systems: unchanged Mental Status Exam Mental Status Exam Patient Appearance: Appropriate Patient Orientation: Person, Place, Time and Situation Level of Consciousness: Alert Patient Behavior: Talkative, Cooperative and Good Eye Contact Mood Description: Anxious, Nervous and Apprehensive Affect Description: Anxious, Nervous and Apprehensive Patient Cognition Impaired: No Ability to Follow Directions: Fair Speech Pattern: Spontaneous Speech Memory Description: Episodic Impaired Delusions: Present Perceptual Disturbances: Depersonalization and Derealization Thought Process: Distracted Thought Content: positive for Circumstantial and positive for Suicidal Ideation (denies) Depressive Symptoms: Increased Anxiety and Difficulty Concentrating Abnormal Motor Activity Signs and Symptoms: Restlessness Judgement: Fair Diagnostics Vital Signs (24Hr): Vital Signs - 24 hr 01/19/23 08:00 01/19/23 16:36 Temperature 98.7 F 97.5 F Pulse Rate 83 100 Respiratory Rate 18 16 Blood Pressure 131/72 118/72 Pulse Oximetry 96 96 Oxygen Delivery Method Room Air Room Air BMI result Body Mass Index 31.6 Labs 01/04/23 17:01 01/04/23 17:01 Medications Medications Current Medications Acetaminophen (Acetaminophen 325 Mg Tablet) 650 mg PO Q6H PRN PRN Reason: Headache/Pain Mild Scale (1-3) Al Hydroxide/Mg Hydroxide (Magnesium Hydrox/Alum Hydrox 30 Ml Oral.Susp) 30 ml PO Q6H PRN PRN Reason: Heartburn/Nausea Haloperidol (Haloperidol 1 Mg Tablet) 2 mg PO BID MANFRED Last Admin: 01/19/23 08:22 Dose: 2 mg Hydroxyzine HCl (Hydroxyzine Hcl 25 Mg Tablet) 25 mg PO Q6H PRN PRN Reason: Anxiety Last Admin: 01/18/23 17:15 Dose: 25 mg Lorazepam (Lorazepam 0.5 Mg Tablet) 0.5 mg PO BEDTIME PRN PRN Reason: Insomnia Last Admin: 01/15/23 12:00 Dose: 0.5 mg Magnesium Hydroxide (Milk Of Magnesia 30 Ml Oral.Susp) 30 ml PO DAILY PRN PRN Reason: Constipation Olanzapine (Olanzapine Odt 10 Mg Tab.Rapdis) 10 mg TRANSLINGU BID MANFRED Last Admin: 01/19/23 08:23 Dose: 10 mg Trazodone HCl (Trazodone Hcl 50 Mg Tablet) 50 mg PO BEDTIME MRX1 PRN PRN Reason: Insomnia Allergies Allergies Allergy/AdvReac Type Severity Reaction Status Date / Time No Known Allergies Allergy Verified 01/04/23 16:03 Assessment & Plan Assessment & Plan (1) Suicidal ideation: Status: Acute Code(s): R45.851 - Suicidal ideations Assessment and Plan: Pt denies SI plan or intent today. (2) Schizoaffective disorder, bipolar type: Status: Acute Code(s): F25.0 - Schizoaffective disorder, bipolar type Plan 17 yo female, student of [employer] presents with symptoms of depression, psychosis she reports since her spring break. Reports sx first presented at age 12. Plan: Haldol 5 mg x 1 Ativan 1 mg x 1 Olanzapine 5 mg bid 01/07: Continue current tx plan. 01/08: Continue current plan 01/09/23: Continue current plan. Facilitate safe return to family in [place] 01/10/23: Increase Olanzapine to 7.5 mg bid 01/11/23: Continue current plan Team attempting to contact parents Tentative discharge for 01/16 for return flight with a travel ticketing reviewer for 01/17/23. 01/12/23: Continue current regime and plan. 01/13/23: Discharge when flight travel medical team is prepared to assist pt with her return to her family. Support, encourage alliance, ongoing medication review for efficacy. 01/14/23: continue current treatment plan with planned dc on Monday01/15/23: Patient shared some insight, wanting to resist delusions/AH. Otherwise no change in presentation. Continue current treatment plan with planned dc on Monday01/16/23: Discharge this week. Flight team is planning a less stressful, time consuming travel plan which they are working on Discontinue Olanzapine. Zydis 10 mg bid Haldol 1 mg bid 01/17/23: Continue current regime Discharge planning. 01/18/23: Continue current regime and plan of care. 01/19/23: Discharge prepared for 01/21 for a return to her parents home in [place] Patient educated on: therapeutic strategies Informed Consent: further education needed Reason for continued inpatient stay Substantial Risk for: rapid decompensation Time Spent With Patient Time: Total time managing care of this patient today ____ minutes.
[2023-01-20 08:00] VITALS: BP 111/75; PULSE 95; RESP 14; TEMP 36.7; O2SAT 97
[2023-01-20] MEDS: HaloperidoL 1 MG TABLET 2 MG PO ×2 (08:16→20:08)
[2023-01-20] MEDS: OLANZapine ODT 10 MG TAB.RAPDIS TRANSLINGU ×2 (08:16→20:08)
--- NOTE | 2023-01-20 11:53 | HO.PSYCHPN ---
Subjective Subjective Date of Service: 01/20/23 Reason For Visit: Schizophrenia Subjective Notes: Conditional Voluntary Healthcare Proxy: No Guardianship: No Medical Problems Affecting Mental Status: No Interim History: My heart feels better after being here with everyone, thank you. It is healing . My mother will help me more when I am home, I will go to her [facility] to heal with her. Lee Ann is preparing to discharge to her home in [place] on 01/21 with flight MD and RN to accompany her She is tolerating medications without side effects, and appears to be responding well without adversity. She is engaged in the milieu, attending some groups, and interactive with peers and team. Medication Compliance: Yes Side effects from medications: No Attending Groups: Intermittent Review of Systems Acute medical concerns: No Medical Review of Systems: unchanged Mental Status Exam Mental Status Exam Patient Appearance: Appropriate Patient Orientation: Person, Place, Time and Situation Level of Consciousness: Alert Patient Behavior: Appropriate, Talkative, Cooperative, Anxious and Good Eye Contact Mood Description: Anxious and Apprehensive Affect Description: Anxious and Apprehensive Patient Cognition Impaired: No Ability to Follow Directions: Good Speech Pattern: Spontaneous Speech Memory Description: Episodic Impaired Hallucinations: Auditory Delusions: Present Perceptual Disturbances: Hallucinations Thought Process: Distracted and Goal Oriented Thought Content: positive for Circumstantial, positive for Goal Oriented, positive for Thought Blocking, positive for Suicidal Ideation (denies) and positive for Homicidal Ideation (denies) Depressive Symptoms: Thoughts of /Suicide (denies) and Low Self Esteem Abnormal Motor Activity Signs and Symptoms: Restlessness Judgement: Fair Diagnostics Vital Signs (24Hr): Vital Signs - 24 hr 01/19/23 16:36 01/20/23 08:00 Temperature 97.5 F 98.0 F Pulse Rate 100 95 Respiratory Rate 16 14 Blood Pressure 118/72 111/75 Pulse Oximetry 96 97 Oxygen Delivery Method Room Air Room Air BMI result Body Mass Index 31.6 Labs 01/04/23 17:01 01/04/23 17:01 Medications Medications Current Medications Acetaminophen (Acetaminophen 325 Mg Tablet) 650 mg PO Q6H PRN PRN Reason: Headache/Pain Mild Scale (1-3) Al Hydroxide/Mg Hydroxide (Magnesium Hydrox/Alum Hydrox 30 Ml Oral.Susp) 30 ml PO Q6H PRN PRN Reason: Heartburn/Nausea Haloperidol (Haloperidol 1 Mg Tablet) 2 mg PO BID MANFRED Last Admin: 01/20/23 08:16 Dose: 2 mg Hydroxyzine HCl (Hydroxyzine Hcl 25 Mg Tablet) 25 mg PO Q6H PRN PRN Reason: Anxiety Last Admin: 01/18/23 17:15 Dose: 25 mg Lorazepam (Lorazepam 0.5 Mg Tablet) 0.5 mg PO BEDTIME PRN PRN Reason: Insomnia Last Admin: 01/15/23 12:00 Dose: 0.5 mg Magnesium Hydroxide (Milk Of Magnesia 30 Ml Oral.Susp) 30 ml PO DAILY PRN PRN Reason: Constipation Olanzapine (Olanzapine Odt 10 Mg Tab.Rapdis) 10 mg TRANSLINGU BID MANFRED Last Admin: 01/20/23 08:16 Dose: 10 mg Trazodone HCl (Trazodone Hcl 50 Mg Tablet) 50 mg PO BEDTIME MRX1 PRN PRN Reason: Insomnia Allergies Allergies Allergy/AdvReac Type Severity Reaction Status Date / Time No Known Allergies Allergy Verified 01/04/23 16:03 Assessment & Plan Assessment & Plan (1) Suicidal ideation: Status: Acute Code(s): R45.851 - Suicidal ideations Assessment and Plan: Pt denies SI plan or intent today. (2) Schizoaffective disorder, bipolar type: Status: Acute Code(s): F25.0 - Schizoaffective disorder, bipolar type Plan 17 yo female, student of [employer] presents with symptoms of depression, psychosis she reports since her spring break. Reports sx first presented at age 12. Plan: Haldol 5 mg x 1 Ativan 1 mg x 1 Olanzapine 5 mg bid 01/07: Continue current tx plan. 01/08: Continue current plan 01/09/23: Continue current plan. Facilitate safe return to family in [place] 01/10/23: Increase Olanzapine to 7.5 mg bid 01/11/23: Continue current plan Team attempting to contact parents Tentative discharge for 01/16 for return flight with a ammunition specialist for 01/17/23. 01/12/23: Continue current regime and plan. 01/13/23: Discharge when flight travel medical team is prepared to assist pt with her return to her family. Support, encourage alliance, ongoing medication review for efficacy. 01/14/23: continue current treatment plan with planned dc on Monday01/15/23: Patient shared some insight, wanting to resist delusions/AH. Otherwise no change in presentation. Continue current treatment plan with planned dc on Monday01/16/23: Discharge this week. Flight team is planning a less stressful, time consuming travel plan which they are working on Discontinue Olanzapine. Zydis 10 mg bid Haldol 1 mg bid 01/17/23: Continue current regime Discharge planning. 01/18/23: Continue current regime and plan of care. 01/19/23: Discharge prepared for 01/21 for a return to her parents home in [place] 01/20/23: Discharge 01/21. Continue current regime and plan of care. Informed Consent: further education needed Reason for continued inpatient stay Substantial Risk for: rapid decompensation Time Spent With Patient Time: Total time managing care of this patient today ____ minutes.
[2023-01-20] MEDS: hydrOXYzine HCL 25 MG TABLET PO (15:15)
[2023-01-20 18:00] VITALS: BP 128/67; PULSE 97; RESP 16; TEMP 36.4; O2SAT 98
[2023-01-21] MEDS: OLANZapine ODT 10 MG TAB.RAPDIS TRANSLINGU (08:36)
[2023-01-21] MEDS: HaloperidoL 1 MG TABLET 2 MG PO (08:36)
[2023-01-21 08:38] VITALS: BP 125/86; PULSE 103; RESP 18; TEMP 36.6; O2SAT 98
--- NOTE | 2023-01-22 20:58 | PM.PSYDC ---
DS: Providers Provider Date of Service: 01/21/23 Date of admission: 01/05/23 15:53 Date of discharge: 01/21/23 Primary care physician: Unknown Physician Admitting clinician: Elizabeth Keating Attending physician on admission: Vadim Alba Attending physician on discharge: Vadim Alba Discharging clinician: Elizabeth Keating DS: Diagnosis Discharge Diagnosis (1) Suicidal ideation: Status: Resolved (2) Schizoaffective disorder, bipolar type: Status: Acute DS: Medications Discharge Medications Home Medications: Previous Rx's Medication Instructions Recorded haloperidol 1 mg tablet 2 mg PO BID #120 tabs 01/19/23 haloperidol 2 mg tablet 2 mg PO TID PRN agitation #30 tabs 01/19/23 lorazepam 0.5 mg tablet 0.5 mg PO BEDTIME PRN Insomnia #7 01/19/23 tabs lorazepam 1 mg tablet 1 mg PO TID PRN anxiety #20 tabs 01/19/23 olanzapine 10 mg disintegrating 10 mg translingual BID #14 tabs 01/19/23 tablet Mental Status Exam Mental Status Exam Patient Appearance: Appropriate Patient Orientation: Person, Place, Time and Situation Level of Consciousness: Alert Patient Behavior: Appropriate, Talkative, Cooperative, Anxious and Good Eye Contact Mood Description: Anxious and Apprehensive Affect Description: Anxious and Apprehensive Patient Cognition Impaired: No Ability to Follow Directions: Good Speech Pattern: Spontaneous Speech Memory Description: Episodic Impaired Hallucinations: Auditory Delusions: Present Perceptual Disturbances: Hallucinations Thought Process: Distracted and Goal Oriented Thought Content: positive for Circumstantial, positive for Goal Oriented, positive for Thought Blocking, positive for Suicidal Ideation (denies) and positive for Homicidal Ideation (denies) Depressive Symptoms: Thoughts of /Suicide (denies) and Low Self Esteem Abnormal Motor Activity Signs and Symptoms: Restlessness Judgement: Fair DS: Summary Hospital Course Hospital Course: Admission to adult psychiatry for exacerbation of symptoms of psychosis. Reports a history of psychosis since age 12, current student of [employer]. Parents are in [place], pt has not been home since May 2022 and reports current symptoms of auditory perceptual alterations, delusions and fear along with some possible raymundo which began over spring, November 2022. Olanzapine was initiated with some improvement, however symptoms persisted. Haldol was added with positive result. The team worked closely with [facility] to arrange MD/RN accompanied transport to pt's home. [facility] in [place] was arranged, however, it was requested that parents make this decision with Lee Ann (Reginald) as their cultural values about treatment differ from those we have initiated during this admission. Lee Ann reports she will work with her parents on anabaptist focused care when she returns home. Time spent discussing smoking cessation with patient: 3 to 10 minutes Status at Discharge Functional status at discharge: independent ambulation Overall status at discharge: patient is progressing back to baseline Time Spent with Patient Time attestation: Total time managing care of this patient today ____ minutes. Time spent: Greater than 30 minutes Discharge Plan Discharge Anticipated Discharge Date/Time: 01/21/23 11:00 Patient Disposition: Xfer Other Discharge Diagnosis: Schizoaffective Disorder, Bipolar Type Referrals: Physician,Unknown J [Primary Care Provider] - 1 Week Discharge Medications: New haloperidol 1 mg Tablet 2 mg PO BID Qty: 120 0RF lorazepam 0.5 mg Tablet 0.5 mg PO BEDTIME PRN (Reason: Insomnia) Qty: 7 0RF olanzapine 10 mg Tablet,Disintegrating 10 mg translingual BID Qty: 14 0RF haloperidol 2 mg tablet 2 mg PO TID PRN (Reason: agitation) Qty: 30 0RF lorazepam 1 mg tablet 1 mg PO TID MDD 3mg PRN (Reason: anxiety) Qty: 20 0RF Discontinued quetiapine 50 mg Tablet 50 mg PO BEDTIME Discharge Orders: Discharge Order (Routine); Ordered 01/21/23 Ordered By: Elizabeth Keating Diet: Advance to usual diet Activity on Discharge: As tolerated Stand Alone Forms: Patient Portal Discharge page, Community Support Activity Restrictions/Additional Instructions: Please call to follow up. Care Plan Goals: Mood and Behavioral Stabilization Health Concerns: Mood and Behavioral Stabilization Plan of Treatment: Reginald will be escorted to her parents home in [place] with a flight MD and RN Her parents will meet her. They would like to take her home upon arrival. The flight team has arranged a hospitalization for Reginald upon arrival. Please allow parents input about this plan prior to admission. Medication: Olanzapine 10 mg bid po Haldol 2 mg bid po Haldol 2 mg tid prn psychosis Lorazepam 0.5 mg HS prn anxiety Lorazepam 1 mg tid prn anxiety Assessment: Reginald reports she has been away from her home since May 2022. She reports that she was not symptomatic until spring vacation, November 2021. She denies any traumatic event which may have precipitated this presentation of symptoms. On our unit, she has been cooperative, engaged with the team and her peers and participates well in programming. There has been no agitation, aggression, just anxiety, feeling homesick and wanting to travel to her home. Medications have been helpful. The recent addition of Haldol seems to have made the most impact, offering improved clarity and fluidity of thought process and content. Patient Instructions: Help Prevent Suicide (ED), Suicide Prevention (ED) Discharge Date/Time: 01/21/23 10:38
== END 2023-01-21 10:38 | disposition other institution (70) | DRG 750 ==
LOC: HO.ED 01-05 12:22 → HO.PM5 01-05 16:03
PROVIDERS: Admitting Provider Psychiatry & Neurology Psychiatry; Emergency Provider Student in an Organized Health Care Education/Training Program; Visit Provider Clinical Nurse Specialist Psychiatric/Mental Health, Adult
DX: F25.0 Schizoaffective disorder, bipolar type (principal); R45.851 Suicidal ideations; Z20.822 Contact with and (suspected) exposure to COVID-19; Z79.899 Other long term (current) drug therapy
CPT/HCPCS: 36415; 80053; 80061; 80143; 80179; 80307; 81003; 81025; 82077; 82607; 82746; 83036; 83735; 84439; 84443; 85025; 87635; 93005; 99285; S9485